=== PATIENT | female | born 1940 | race Caucasian/White ===

== ENCOUNTER 2020-10-26 08:17 | Outpatient (REF) | payer MEDICARE, SELFPAY ==
[2020-10-26 10:18] LABS: MANUAL DIFF FLAG NO
[2020-10-26 10:41] LABS: Basophils Absolute Auto 0.1 X10*3/uL (0.0-0.2); Basophils Percent Auto 1.3 % (0-2); Eosinophils Absolute Auto 0.1 X10*3/uL (0.0-0.4); Eosinophils Percent Auto 2.3 % (0-4); Hematocrit 42.4 % (37-47); Hemoglobin 14.3 g/dl (12.0-16.0); Imm Gran Abs Auto 0.01 X10*3/uL (0.00-0.03); Imm Gran Pct Auto 0.2 % (0.0-0.4); Lymphocytes Absolute Auto 2.2 X10*3/uL (1.2-4.9); Mean Corpuscular HGB Conc 33.7 g/dl (31.0-35.0); Mean Corpuscular Hemoglobin 30.3 pg (27.0-33.0); Mean Corpuscular Volume 89.8 fL (80-98); Mean Platelet Volume 10.4 fL (9.4-12.3); Monocytes Absolute Auto 0.5 X10*3/uL (0.1-1.2); Monocytes Percent Auto 8.7 % (2-11); Neutrophils Absolute Auto 2.4 X10*3/uL (2.0-8.3); Neutrophils Percent Auto 45.5 % (45-73); Platelet Count 248 X10*3/uL (160-400); Red Blood Count 4.72 X10*6/uL (4.20-5.50); Red Cell Distribution Width 13.2 % (11.0-16.0); White Blood Count 5.3 X10*3/uL (4.8-10.8)
[2020-10-26 10:58] LABS: Alanine Aminotransferase 23 U/L (0-31); Albumin Level 4.2 g/dL (3.5-5.0); Alkaline Phosphatase 74 U/L (39-117); Anion Gap 15 (12-20); Aspartate Amino Transferase 27 U/L (5-31); Bilirubin Total 0.4 mg/dL (0.0-1.0); Blood Urea Nitrogen 20 mg/dL (9-16); Calcium 9.2 mg/dL (8.4-10.2); Carbon Dioxide 29 mmol/L (22-29); Chloride 102 mmol/L (96-108); Cholesterol 174 mg/dL; Estimated Glomerular Filt Rate > 60; Glucose Fasting 98 mg/dL (60-99); HDL Cholesterol 56 mg/dL; LDL Cholesterol Calculated 99 mg/dl; Potassium 4.5 mmol/l (3.3-5.1); Sodium 141 mmol/L (135-145); Total Protein 6.8 g/dL (6.5-8.0); Triglycerides 99 mg/dL
[2020-10-26 11:16] LABS: Vitamin B12 782 pg/mL (200-900)
== END 2020-10-26 08:18 | disposition home or self-care (01) ==
LOC: HO.LAB 08:17
PROVIDERS: PCP Internal Medicine; Visit Provider Internal Medicine
DX: E78.5 Hyperlipidemia, unspecified (principal); I10 Essential (primary) hypertension; F41.1 Generalized anxiety disorder; K59.01 Slow transit constipation; D50.1 Sideropenic dysphagia
CPT/HCPCS: 36415; 80053; 80061; 82607; 85025

== ENCOUNTER → 2020-10-30 10:19 | Outpatient (BNV) | payer MEDICARE, SELFPAY | PROVIDERS: PCP Internal Medicine; Visit Provider Internal Medicine Medical Oncology | DX: D51.0 Vitamin B12 deficiency anemia due to intrinsic factor deficiency (principal) | CPT/HCPCS: 99213; 99214; 99442 ==

== ENCOUNTER 2021-03-19 10:31 | Outpatient (REF) | payer MEDICARE, SELFPAY ==
[2021-03-19 14:38] LABS: Alanine Aminotransferase 15 U/L (0-31); Albumin Level 4.2 g/dL (3.5-5.0); Alkaline Phosphatase 83 U/L (39-117); Anion Gap 15 (12-20); Aspartate Amino Transferase 24 U/L (5-31); Bilirubin Total 0.6 mg/dL (0.0-1.0); Blood Urea Nitrogen 20 mg/dL (9-16); Calcium 9.5 mg/dL (8.4-10.2); Carbon Dioxide 28 mmol/L (22-29); Chloride 88 mmol/L (96-108); Cholesterol 206 mg/dL; Estimated Glomerular Filt Rate 48; Glucose Fasting 98 mg/dL (60-99); HDL Cholesterol 52 mg/dL; LDL Cholesterol Calculated 133 mg/dl; Potassium 4.2 mmol/L (3.3-5.1); Sodium 127 mmol/L (135-145); Total Protein 6.7 g/dL (6.5-8.0); Triglycerides 108 mg/dL
== END 2021-03-19 10:32 | disposition home or self-care (01) ==
LOC: HO.HMGCLDS 10:31
PROVIDERS: PCP Internal Medicine; Visit Provider Internal Medicine
DX: E78.9 Disorder of lipoprotein metabolism, unspecified (principal); I10 Essential (primary) hypertension; F41.1 Generalized anxiety disorder
CPT/HCPCS: 36415; 80048; 80053; 80061

== ENCOUNTER 2021-03-22 07:08 | Outpatient (REF) | payer MEDICARE, SELFPAY ==
[2021-03-22 11:30] LABS: MANUAL DIFF FLAG NO
[2021-03-22 11:45] LABS: Basophils Absolute Auto 0.1 X10*3/uL (0.0-0.2); Eosinophils Absolute Auto 0.1 X10*3/uL (0.0-0.4); Eosinophils Percent Auto 2.5 % (0-4); Hemoglobin 12.6 g/dl (12.0-16.0); Imm Gran Abs Auto 0.02 X10*3/uL (0.00-0.03); Imm Gran Pct Auto 0.4 % (0.0-0.4); Lymphocytes Absolute Auto 1.9 X10*3/uL (1.2-4.9); Lymphocytes Percent Auto 37.2 % (20-40); Mean Corpuscular HGB Conc 34.1 g/dl (31.0-35.0); Mean Corpuscular Hemoglobin 30.1 pg (27.0-33.0); Mean Corpuscular Volume 88.5 fL (80-98); Mean Platelet Volume 9.7 fL (9.4-12.3); Monocytes Absolute Auto 0.5 X10*3/uL (0.1-1.2); Monocytes Percent Auto 8.6 % (2-11); Neutrophils Absolute Auto 2.6 X10*3/uL (2.0-8.3); Neutrophils Percent Auto 50.3 % (45-73); Platelet Count 283 X10*3/uL (160-400); Red Blood Count 4.18 X10*6/uL (4.20-5.50); White Blood Count 5.2 X10*3/uL (4.8-10.8)
[2021-03-22 12:08] LABS: Alanine Aminotransferase 18 U/L (0-31); Albumin Level 4.2 g/dL (3.5-5.0); Alkaline Phosphatase 81 U/L (39-117); Anion Gap 14 (12-20); Aspartate Amino Transferase 23 U/L (5-31); Bilirubin Total 0.7 mg/dL (0.0-1.0); Blood Urea Nitrogen 19 mg/dL (9-16); Calcium 9.6 mg/dL (8.4-10.2); Carbon Dioxide 29 mmol/L (22-29); Chloride 91 mmol/L (96-108); Estimated Glomerular Filt Rate > 60; Glucose Random 103 mg/dL (60-115); Potassium 3.8 mmol/L (3.3-5.1); Sodium 130 mmol/L (135-145); Total Protein 6.7 g/dL (6.5-8.0)
== END 2021-03-22 07:09 | disposition home or self-care (01) ==
LOC: HO.HMGCLDS 07:08
PROVIDERS: Internal Medicine Medical Oncology; PCP Internal Medicine; Visit Provider Internal Medicine
DX: D51.0 Vitamin B12 deficiency anemia due to intrinsic factor deficiency (principal)
CPT/HCPCS: 36415; 80053; 85025

== ENCOUNTER 2021-06-12 17:43 | Emergency (ER) | payer MEDICARE, SELFPAY ==
--- NOTE | ~2021-06-12 | XR_ITS ---
EXAMINATION: XR CHEST CLINICAL INFORMATION: Cough. COMPARISON: 10/09/2017 TECHNIQUE: AP portable upright view of the chest FINDINGS: Lungs are clear. No consolidation, pneumothorax, or pleural effusion. Cardiac and mediastinal contours are normal. Pulmonary vasculature is unremarkable. Bones are osteopenic. XR/XR chest 1V IMPRESSION: No acute cardiopulmonary findings
[2021-06-12 17:47] VITALS: BP 160/74; PULSE 67; RESP 18; TEMP 36.9; O2SAT 95; BMI 31.9
--- NOTE | 2021-06-12 18:19 | ED.URI ---
HPI - URI/Sore Throat General Chief Complaint: Upper Respiratory Symptoms Stated Complaint: flu like Source: patient Mode of arrival: ambulatory Limitations: no limitations History of Present Illness HPI Narrative: 81-year-old female with past medical history of anxiety, hypertension, hyperlipidemia, and hyponatremia presents with productive cough, fevers of 100.8, sore throat, and body aches. Has had multiple COVID-19 positive contacts patient did call her primary care physician who suggested that she present to the emergency department for lab values and x-rays. MD elicited complaint: fever, cough, sore throat and nasal congestion Onset (ago): day(s) (2) Consistency: constant Severity: mild Description of mucous: clear and watery Able to tolerate fluids by mouth: Yes Exacerbating factors: swallowing and speaking Relieving factors: nothing Context: sick contacts Associated symptoms: fever, chills, rhinorrhea, nasal congestion, sore throat and cough Treatments prior to arrival: acetaminophen Related Data Home Medications Medication Instructions Recorded Confirmed B12 10/30/20 03/19/21 ascorbic acid (vitamin C) 1,000 mg cap PO 10/30/20 03/19/21 capsule,extended release cholecalciferol (vitamin D3) 25 25 mcg PO DAILY 10/30/20 03/19/21 mcg (1,000 unit) capsule (Vitamin D3) [id number] oil-omega 3-vit E cap PO 10/30/20 03/19/21 50 mg-550 mg-300 mg-30 unit capsule docusate sodium 50 mg capsule 50 mg PO BID 10/30/20 03/19/21 folic acid 1 mg tablet 1 tab PO DAILY 10/30/20 03/19/21 garlic 10/30/20 03/19/21 multivitamin cap 10/30/20 03/19/21 thiamine HCl (vitamin B1) 25 mg mg PO 10/30/20 03/19/21 tablet vitamin B complex 1 cap PO DAILY 10/30/20 03/19/21 vitamin E 1,000 unit capsule 1,000 unit PO DAILY 10/30/20 03/19/21 zinc 10/30/20 03/19/21 psyllium 03/22/21 03/22/21 Previous Rx's Medication Instructions Recorded rosuvastatin 5 mg tablet 5 mg PO DAILY #90 tab 02/17/21 lisinopril 20 mg tablet 20 mg PO DAILY 90 Days #90 tab 03/19/21 amlodipine 10 mg tablet 10 mg PO DAILY #90 tab 04/04/21 atenolol 50 mg-chlorthalidone 25 1 tab PO DAILY #90 tab 04/15/21 mg tablet sertraline 50 mg tablet 50 mg PO DAILY 90 Days #90 tab 04/23/21 benzonatate 100 mg capsule 100 mg PO TID PRN #60 cap 06/12/21 (Avery Chopra) Allergies Allergy/AdvReac Type Severity Reaction Status Date / Time No Known Allergies Allergy Verified 03/19/21 09:49 [No Known Allergies*] Review of Systems Review of Systems: Constitutional: positive Fever, positive Chills, positive fatigue, positive Malaise ENT/Mouth: positive sore throat, positive runny nose Eyes: No Discharge Cardiovascular: No Chest Pain, No SOB Respiratory: No Cough, No Sputum, No Wheezing, No Smoke Exposure, No Dyspnea Gastrointestinal: No Nausea, No Vomiting, No Diarrhea Genitourinary: no irregular bleeding, No Dysuria, No Urinary Frequency, No Hematuria, No Urinary Incontinence, No Urgency, No Flank Pain, Musculoskeletal: positive Myalgia Skin: No rash Neuro: No Headache Yes all other systems are reviewed and are negative [facility] Past Medical History Attestation statement: The following information was validated with the patient. Source: old records reviewed Medical History Anemia, pernicious Anxiety, generalized Constipation by delayed colonic transit Hypertension, essential Lipid disorder Polyneuropathy Surgical History H/O rectal polypectomy H/O: hysterectomy No pertinent past surgical history S/P excision of lipoma Family History Family History Father HTN (hypertension) Mother HTN (hypertension) CHF (congestive heart failure) Afib Social History Social History Alcohol intake: former Advance Directives: No Advance Directives Information Provided: No Physical Exam Vital Signs: Vital Signs: Last Vital Signs Temp 98.4 F 06/12/21 17:47 Pulse 67 06/12/21 17:47 Resp 18 06/12/21 17:47 BP 160/74 H 06/12/21 17:47 Pulse Ox 95 06/12/21 17:47 Body Mass Index 31.9 Appearance: Alert. Oriented X3. No acute distress. Eyes: Pupils equal, round and reactive to light. EOMI, sclera nonicteric ENT: Pharynx normal. Moist mucous membranes Neck: Normal inspection. Neck supple. No nuchal rigidity, no cervical lymphadenopathy CVS: Normal heart rate and rhythm. Pulses normal. Respiratory: No respiratory distress. Lung sounds clear to auscultation all lobes. Abdomen: Soft and nontender. Skin: Skin warm and dry. Normal skin color. Normal skin turgor. Extremities: No lower extremity edema. Moves all extremities against resistance, strength 5/5. Neuro: No motor deficit. No sensory deficit. Cranial nerves 2-12 intact. No focal neural deficits. Course Course Course Narrative: 81-year-old female presents with upper respiratory symptoms and multiple positive COVID-19 contacts. Will order COVID testing, chest x-ray, and labs. At this time patient is afebrile, nontoxic, lung sounds clear to auscultation all lobes. Vital signs are within normal limits and stable. Sodium 131, which is chronic and has improved since last values. COVID test is positive. Chest x-ray negative for pneumonia. Will discharge patient home with supportive measures. Patient verbalized understanding of and agrees to plan of care. MDM - URI/Sore Throat Differential Diagnosis Differential diagnosis: Likely upper respiratory infection, sinusitis, viral infection, bronchitis and pharyngitis Medical Records Attestation: I reviewed the patient's medical records. Lab Data Attestation: I reviewed the patient's lab results. Result diagrams: 06/12/21 18:36 06/12/21 18:36 Labs: Lab Results 06/12/21 06/12/21 06/12/21 Range/Units 18:28 18:36 18:36 WBC 4.6 L (4.8-10.8) X10*3/uL RBC 4.17 L (4.20-5.50) X10*6/uL Hgb 12.8 (12.0-16.0) g/dl Hct 37.2 (37-47) % MCV 89.2 (80-98) fL MCH 30.7 (27.0-33.0) pg MCHC 34.4 (31.0-35.0) g/dl RDW 11.5 (11.0-16.0) % Plt Count 175 D (160-400) X10*3/uL MPV 9.8 (9.4-12.3) fL Immature Gran % (Auto) 0.2 (0.0-0.4) % Neut % (Auto) 66.4 (45-73) % Lymph % (Auto) 23.5 (20-40) % [place] % (Auto) 9.0 (2-11) % Eos % (Auto) 0.2 (0-4) % Baso % (Auto) 0.7 (0-2) % Lymph # (Auto) 1.1 L (1.2-4.9) X10*3/uL [place] # (Auto) 0.4 (0.1-1.2) X10*3/uL Eos # (Auto) 0.0 (0.0-0.4) X10*3/uL Baso # (Auto) 0.0 (0.0-0.2) X10*3/uL Abs Immat Gran (auto) 0.01 (0.00-0.03) X10*3/uL Absolute Neuts (auto) 3.0 (2.0-8.3) X10*3/uL Absolute Nucleated RBC 0.000 (0.0-0.012) X10*3/uL Nucleated RBC % (auto) 0.0 (0.0-0.2) /100WBC Sodium 131 L (135-145) mmol/L Potassium 3.9 (3.3-5.1) mmol/L Chloride 95 L (96-108) mmol/L Carbon Dioxide 26 (22-29) mmol/L Anion Gap 14 (12-20) BUN 13 (9-16) mg/dL Creatinine 0.84 (0.5-1.4) mg/dL Estim Creat Clear Calc 60.3 Estimated GFR > 60 Random Glucose 94 (60-115) mg/dL Calcium 8.7 D (8.4-10.2) mg/dL Coronavirus (PCR) POSITIVE A (Negative) Influenza Type A (PCR) NEGATIVE (Negative) Influenza Type B (PCR) NEGATIVE (Negative) RSV RNA Qual (PCR) NEGATIVE (Negative) S. pyogenes GrpA SHAILA (Negative) 06/12/21 Range/Units 19:24 WBC (4.8-10.8) X10*3/uL RBC (4.20-5.50) X10*6/uL Hgb (12.0-16.0) g/dl Hct (37-47) % MCV (80-98) fL MCH (27.0-33.0) pg MCHC (31.0-35.0) g/dl RDW (11.0-16.0) % Plt Count (160-400) X10*3/uL MPV (9.4-12.3) fL Immature Gran % (Auto) (0.0-0.4) % Neut % (Auto) (45-73) % Lymph % (Auto) (20-40) % [place] % (Auto) (2-11) % Eos % (Auto) (0-4) % Baso % (Auto) (0-2) % Lymph # (Auto) (1.2-4.9) X10*3/uL [place] # (Auto) (0.1-1.2) X10*3/uL Eos # (Auto) (0.0-0.4) X10*3/uL Baso # (Auto) (0.0-0.2) X10*3/uL Abs Immat Gran (auto) (0.00-0.03) X10*3/uL Absolute Neuts (auto) (2.0-8.3) X10*3/uL Absolute Nucleated RBC (0.0-0.012) X10*3/uL Nucleated RBC % (auto) (0.0-0.2) /100WBC Sodium (135-145) mmol/L Potassium (3.3-5.1) mmol/L Chloride (96-108) mmol/L Carbon Dioxide (22-29) mmol/L Anion Gap (12-20) BUN (9-16) mg/dL Creatinine (0.5-1.4) mg/dL Estim Creat Clear Calc Estimated GFR Random Glucose (60-115) mg/dL Calcium (8.4-10.2) mg/dL Coronavirus (PCR) (Negative) Influenza Type A (PCR) (Negative) Influenza Type B (PCR) (Negative) RSV RNA Qual (PCR) (Negative) S. pyogenes GrpA SHAILA Negative (Negative) Imaging Data Chest x-ray: Attestation: I personally reviewed and interpreted this imaging study as follows: Radiologist's impression: EXAMINATION: XR CHEST CLINICAL INFORMATION: Cough. COMPARISON: 10/09/2017 TECHNIQUE: AP portable upright view of the chest FINDINGS: ?Lungs are clear. No consolidation, pneumothorax, or pleural effusion. Cardiac and mediastinal contours are normal. Pulmonary vasculature is unremarkable. Bones are osteopenic. XR/XR chest 1V IMPRESSION: No acute cardiopulmonary findings Discharge Plan Discharge Clinical Impression: COVID-19 Patient Disposition: Home, Self-Care Instructions: COVID-19 (Coronavirus Disease 2019) (ED) Additional Instructions: You were evaluated for upper respiratory symptoms. Your COVID-19 test is positive. You were evaluated for symptoms consistent with COVID-19 and or COVID-19 positive exposure. Please maintain social isolation per State and Federal guidelines. Is your responsibility to maintain these guidelines. Please alternate Tylenol and Motrin as needed for pain management and fever control. If symptoms get worse, you develop shortness of breath, or your fevers are not controlled with Tylenol and Motrin, please return to the emergency department immediately. Thank you for choosing this emergency department for evaluation. Please follow-up with primary care physician as needed. Return to the emergency department for any new, concerning, or worsening symptoms. Prescriptions: New benzonatate [Tessalon Perles] 100 mg capsule 100 mg PO TID PRN (Reason: cough) Qty: 60 RF: 0 No Action rosuvastatin 5 mg tablet 5 mg PO DAILY Qty: 90 RF: 0 amlodipine 10 mg tablet 10 mg PO DAILY Qty: 90 RF: 0 atenolol-chlorthalidone 50-25 mg tablet 1 tab PO DAILY Qty: 90 RF: 0 sertraline 50 mg tablet 50 mg PO DAILY 90 Days Qty: 90 RF: 0 B12 RF: 0 vitamin E 1,000 unit Capsule 1,000 unit PO DAILY RF: 0 Colace 50 mg Capsule 50 mg PO BID RF: 0 garlic Capsule RF: 0 folic acid 1 mg tablet 1 tab PO DAILY RF: 0 multivitamin Capsule RF: 0 vitamin B complex [B Complex] Capsule 1 cap PO DAILY RF: 0 Vitamin C 1,000 mg Capsule, Extended Release PO RF: 0 thiamine HCl (vitamin B1) 25 mg Tablet PO RF: 0 cholecalciferol (vitamin D3) [Vitamin D3] 25 mcg (1,000 unit) Capsule 25 mcg PO DAILY RF: 0 co [id number] oil-omega 3-E [id number]-unit Capsule PO RF: 0 zinc RF: 0 GenFiber (psyllium) Powder RF: 0 lisinopril 20 mg tablet 20 mg PO DAILY 90 Days Qty: 90 RF: 0 Interventions: ED Discharge Assessment Last Done: 06/12/21 19:34 Discharge Date/Time: 06/12/21 19:36
[2021-06-12 18:45] LABS: Basophils Percent Auto 0.7 % (0-2); Eosinophils Percent Auto 0.2 % (0-4); Hematocrit 37.2 % (37-47); Hemoglobin 12.8 g/dl (12.0-16.0); Imm Gran Abs Auto 0.01 X10*3/uL (0.00-0.03); Imm Gran Pct Auto 0.2 % (0.0-0.4); Lymphocytes Absolute Auto 1.1 X10*3/uL (1.2-4.9); Lymphocytes Percent Auto 23.5 % (20-40); MANUAL DIFF FLAG NO; Mean Corpuscular HGB Conc 34.4 g/dl (31.0-35.0); Mean Corpuscular Hemoglobin 30.7 pg (27.0-33.0); Mean Corpuscular Volume 89.2 fL (80-98); Mean Platelet Volume 9.8 fL (9.4-12.3); Monocytes Absolute Auto 0.4 X10*3/uL (0.1-1.2); Neutrophils Percent Auto 66.4 % (45-73); Platelet Count 175 X10*3/uL (160-400); Red Blood Count 4.17 X10*6/uL (4.20-5.50); Red Cell Distribution Width 11.5 % (11.0-16.0); White Blood Count 4.6 X10*3/uL (4.8-10.8)
[2021-06-12 19:06] LABS: Anion Gap 14 (12-20); Blood Urea Nitrogen 13 mg/dL (9-16); Calcium 8.7 mg/dL (8.4-10.2); Carbon Dioxide 26 mmol/L (22-29); Chloride 95 mmol/L (96-108); Creatinine Clr Calc Pharmacy 60.3; Estimated Glomerular Filt Rate > 60; Glucose Random 94 mg/dL (60-115); Potassium 3.9 mmol/L (3.3-5.1); Sodium 131 mmol/L (135-145)
[2021-06-12 19:15] LABS: Influenza A PCR NEGATIVE (Negative); Influenza B PCR NEGATIVE (Negative); Resp Syncy Virus RNA Qual PCR NEGATIVE (Negative); SARS COV2 PCR INHOUSE POSITIVE (Negative)
--- NOTE | 2021-06-12 19:25 | PC.NURSE ---
Strep swab obtained and sent. [employer]GE [employer] at bedside discussing Covid+ result. Plan for discharge home @ this time.
--- NOTE | 2021-06-12 19:33 | PC.NURSE ---
Pt agreeable to discharge. Denies pain, SOB at this time, pt speaking full sentences in NAD. Pt advised on plan to quarantine for 2 weeks.
[2021-06-12 19:48] LABS: IDNOW Serial# 9DD0AD1C; Strep A Nucleic Acid Negative (Negative)
== END 2021-06-12 19:36 | disposition home or self-care (01) ==
PROVIDERS: Nurse Practitioner Family; Emergency Provider Emergency Medicine Emergency Medical Services; PCP Internal Medicine
DX: U07.1 COVID-19 (principal); I10 Essential (primary) hypertension
CPT/HCPCS: 0241U; 36415; 71045; 80048; 85025; 87651; 99283

== ENCOUNTER 2021-08-10 12:05 | Outpatient (REF) | payer MEDICARE, SELFPAY ==
[2021-08-10 13:59] LABS: MANUAL DIFF FLAG NO
[2021-08-10 14:06] LABS: Basophils Absolute Auto 0.1 X10*3/uL (0.0-0.2); Basophils Percent Auto 0.9 % (0-2); Eosinophils Absolute Auto 0.1 X10*3/uL (0.0-0.4); Hematocrit 42.7 % (37-47); Hemoglobin 14.1 g/dl (12.0-16.0); Imm Gran Abs Auto 0.01 X10*3/uL (0.00-0.03); Imm Gran Pct Auto 0.2 % (0.0-0.4); Lymphocytes Absolute Auto 1.6 X10*3/uL (1.2-4.9); Lymphocytes Percent Auto 29.5 % (20-40); Mean Corpuscular Volume 87.9 fL (80-98); Mean Platelet Volume 10.4 fL (9.4-12.3); Monocytes Absolute Auto 0.4 X10*3/uL (0.1-1.2); Monocytes Percent Auto 7.7 % (2-11); Neutrophils Absolute Auto 3.3 X10*3/uL (2.0-8.3); Neutrophils Percent Auto 59.7 % (45-73); Platelet Count 287 X10*3/uL (160-400); Red Blood Count 4.86 X10*6/uL (4.20-5.50); Red Cell Distribution Width 12.3 % (11.0-16.0); White Blood Count 5.5 X10*3/uL (4.8-10.8)
[2021-08-10 14:41] LABS: Alanine Aminotransferase 15 U/L (0-31); Albumin Level 4.3 g/dL (3.5-5.0); Alkaline Phosphatase 104 U/L (39-117); Anion Gap 15 (12-20); Aspartate Amino Transferase 22 U/L (5-31); Bilirubin Total 0.4 mg/dL (0.0-1.0); Blood Urea Nitrogen 16 mg/dL (9-16); Calcium 9.8 mg/dL (8.4-10.2); Carbon Dioxide 26 mmol/L (22-29); Chloride 100 mmol/L (96-108); Estimated Glomerular Filt Rate > 60; Glucose Random 94 mg/dL (60-115); Potassium 4.6 mmol/L (3.3-5.1); Sodium 136 mmol/L (135-145); Total Protein 7.1 g/dL (6.5-8.0)
== END 2021-08-10 12:06 | disposition home or self-care (01) ==
LOC: HO.HMGCLDS 12:05
PROVIDERS: PCP Internal Medicine; Visit Provider Internal Medicine
DX: E87.1 Hypo-osmolality and hyponatremia (principal); F41.1 Generalized anxiety disorder; I10 Essential (primary) hypertension
CPT/HCPCS: 36415; 80053; 85025

== ENCOUNTER 2021-12-15 11:48 | Outpatient (REF) | payer MEDICARE, SELFPAY ==
--- NOTE | ~2021-12-15 | XR_ITS ---
EXAMINATION: XR CHEST CLINICAL INFORMATION: Cough COMPARISON: Previous chest x-ray May 2021 TECHNIQUE: 2 views of the chest were obtained. FINDINGS: The cardiac and mediastinal contours are stable. The lungs are well inflated. The lungs are clear. There is no pleural effusion or pneumothorax. There are degenerative changes of the spine. XR/XR chest 2V IMPRESSION: No evidence for acute disease in the chest.
== END 2021-12-15 11:49 | disposition home or self-care (01) ==
LOC: HO.HMGCX 11:48
PROVIDERS: PCP Internal Medicine; Visit Provider Internal Medicine
DX: R05.8 Other specified cough (principal)
CPT/HCPCS: 71046

== ENCOUNTER 2021-12-18 10:28 | Emergency (ER) | payer MEDICARE, SELFPAY ==
--- NOTE | ~2021-12-18 | XR_ITS ---
EXAMINATION: CT HEAD/BRAIN WITHOUT CONTRAST CT CERVICAL SPINE WITHOUT CONTRAST XR BILATERAL RIBS AND CHEST XR THORACIC SPINE CLINICAL INFORMATION: Fall. COMPARISON: None TECHNIQUE: 5 mm thin axial and reformatted 2 mm thin sagittal and coronal images of the brain were obtained. Axial 3 mm thin and reformatted 2 mm thin sagittal and coronal images of the cervical spine were obtained. DLP: 1141 mGy-cm Chest 2 views. Chest and right RIBS 4 views. FINDINGS: BRAIN: There is no acute intra-axial, extra-axial bleed, masses or midline shift. There is no acute infarct in evolution. The lateral ventricles are symmetrical in size and configuration without enlargement. There is diffuse periventricular hypodensity suggestive of chronic small vessel ischemic changes. Bone windows reveal no calvarial abnormality. Bilateral paranasal sinuses and mastoid air cells are well aerated. The scalp soft tissues are normal. There is diffuse mucoperiosteal thickening of the bilateral sphenoid and bilateral ethmoid sinuses. There is sebastian bullosa of middle turbinates. CERVICAL SPINE: On sagittal reconstructed images, there is maintained cervical lordosis. The vertebral heights and alignment is normal. There is loss of C6-C7 disc height with moderate ventral and mild posterior cervical spondylosis. No visible acute fracture, dislocation or lytic process seen. The craniovertebral junction and the C1-C2 alignment is normal. There is moderate hypertrophic spurring C1-C2 disc level. Bilateral TM joints are symmetrical and normal. Bilateral parotid and submandibular glands are symmetrical and normal. The airway is widely patent. The right thyroid gland is lobulated and enlarged with hypodense nodules. The lung apices are clear. CHEST AND RIGHT RIBS: The lungs are well expanded and clear of acute process. The heart size and pulmonary vascularity is normal. There is no pleural effusion or thickening. Multiple views of the right ribs reveal no visible rib fracture or bony abnormality. DORSAL SPINE: There is maintained thoracic kyphosis. The vertebral heights, alignment and disc heights are normal. There is moderate ventral spondylosis of the mid and lower dorsal spine. No lytic process. XR/XR ribs BI min 4V w CXR1V IMPRESSION: No acute intracranial process seen. There is mild mucoperiosteal thickening of the bilateral sphenoid and ethmoid sinuses. Moderate hypertrophic degenerative changes C1-C2 disc level. There are degenerative disc changes with spondylosis C6-C7 disc level. No visible acute fracture, dislocation or lytic process seen.
[2021-12-18 10:32] VITALS: BP 175/79; PULSE 64; RESP 18; TEMP 36.8; O2SAT 100; BMI 30.9
--- NOTE | 2021-12-18 11:32 | ED_ITS ---
HPI - Fall General Chief Complaint: Fall Stated Complaint: fall Time Seen by Provider: 12/18/21 10:41 Source: patient Mode of arrival: ambulatory Limitations: no limitations History of Present Illness HPI Narrative: Patient is an 81-year-old female with a past medical history of vitamin B12 deficiency, constipation, anxiety, hypertension, hypercholesterolemia. Patient presents emergency department for evaluation after a fall. Reports walking down 3 stairs outdoors, when she slipped on the last stair striking her mid upper back and head against a cement. She denies loss of consciousness, but reports she ?saw stars?. The fall was witnessed by a friend who denies loss of consciousness as well. She turned onto her side and lie there for a few minutes and got herself up and was driven to the ER. Currently, she is reporting a laceration to the back of her head that is tender to touch and not currently bl eeding. She is reporting substernal chest pain that is described as a pressure, and lateral chest pain that is worse with inspiration and movement. She denies any symptoms precipitating the fall such as headache, vision changes, dizziness or lightheadedness, chest pain, palpitations, shortness of breath, nausea, abdominal pain. Denies taking any anticoagulants or anti-platelet agents. 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 Denies any lower back pain, bladder or bowel dysfunction, numbness or tingling of the perineum or bilateral legs. Denies headache, vision changes, shortness of breath. MD complaint: fall Onset (ago): hour(s) Fall from: standing Fall witnessed: yes, by bystander Place fall occurred: home Loss of consciousness: none Prolonged down time: no Symptoms prior to fall: none Context: tripped/slipped Location of injury: head, chest and back Severity scale (1-10): 4 Associated symptoms (after fall): denies Related Data Home Medications Medication Instructions Recorded Confirmed B12 1,500 units PO DAILY 10/30/20 10/01/21 ascorbic acid (vitamin C) 1,000 mg 1,000 cap PO DAILY 10/30/20 10/01/21 capsule,extended release cholecalciferol (vitamin D3) 25 25 mcg PO DAILY 10/30/20 10/01/21 mcg (1,000 unit) capsule (Vitamin D3) [id number] oil-omega 3-vit E 1 cap PO DAILY 10/30/20 10/01/21 50 mg-550 mg-300 mg-30 unit capsule docusate sodium 50 mg capsule 50 mg PO BID 10/30/20 10/01/21 folic acid 1 mg tablet 1 tab PO DAILY 10/30/20 10/01/21 multivitamin 1 cap PO DAILY 10/30/20 10/01/21 thiamine HCl (vitamin B1) 25 mg 25 mg PO DAILY 10/30/20 10/01/21 tablet vitamin B complex 1 cap PO DAILY 10/30/20 10/01/21 vitamin E 1,000 unit capsule 1,000 unit PO DAILY 10/30/20 10/01/21 psyllium 1 ea PO TID 03/22/21 10/01/21 coenzyme Q10 50 mg capsule (Co 50 mg PO DAILY 10/01/21 10/01/21 Q-10) Previous Rx's Medication Instructions Recorded atenolol 50 mg-chlorthalidone 25 1 tab PO DAILY #90 tab 10/13/21 mg tablet sertraline 50 mg tablet 50 mg PO DAILY 90 Days #90 tab 10/13/21 lisinopril 20 mg tablet 20 mg PO DAILY 90 Days #90 tab 12/13/21 Allergies Allergy/AdvReac Type Severity Reaction Status Date / Time No Known Allergies Allergy Verified 08/10/21 11:47 [No Known Allergies*] Review of Systems Verdana 4l Review of Systems: Verdana 4d [place] 4Bd Constitutional: [place] 4d No weight loss, fever, chills, weakness or fatigue. [place] 4Bd HEENT: + head injury. [place] 4d No visual loss, blurred vision, double vision or yellow sclera. No hearing loss, sneezing, congestion, runny nose or soresore throat. Skin: + posterior head laceration. No rash or itching. Cardiovascular: + chest pressure, lateral chest pain. No chest pain or chest discomfort. No palpitations or pedal edema. Respiratory: No shortness of breath, cough or sputum production. Gastrointestinal: No anorexia, nausea, vomiting or diarrhea. No abdominal pain or blood in stool. Genitourinary: No burning micturition. No urinary frequency or incontinence. Neurologic: + numbness or tingling in the hands and feet. No headache, dizziness, syncope, unilateral weakness, ataxia. No change in bowel or bladder control. Musculoskeletal: + mid back pain. No muscle pain, joint pain or stiffness. Hematologic: No bleeding or bruising. Lymphatics: No enlarged lymph nodes. Psychiatric:No depression or anxiety. Endocrine: No polyuria or polydipsia. [facility] Past Medical History Attestation statement: The following information was validated with the patient. Source: old records reviewed Medical History Anemia, pernicious Anxiety, generalized Constipation by delayed colonic transit Hypertension, essential Lipid disorder Polyneuropathy Surgical History H/O rectal polypectomy H/O: hysterectomy S/P excision of lipoma Family History Family History Father HTN (hypertension) Heart attack Mother CHF (congestive heart failure) Afib HTN (hypertension) Other Substance use disorder Social History Social History Housing: House Alcohol intake: former Patient Tobacco Use Status: Former Tobacco user Quit Date: 1982 Tobacco use type: Cigarette Years Smoked: since age 14 Advance Directives: Yes Advance Directives Information Provided: Yes Advance Directives on File: No Current occupational status: retired Physical Exam Verdana 4l Vital Signs: Verdana 4d Verdana 4d Vital Signs: Verdana 4d Verdana 4Bd Last Vital Signs Verdana 4d Jewelry Designer New 4d Jewelry Designer New 4d Temp 98.2 F 12/18/21 10:32 Jewelry Designer New 4d Pulse 64 12/18/21 10:32 Jewelry Designer New 4d Resp 18 12/18/21 10:32 BP 175/79 H 12/18/21 10:32 Pulse Ox 100 12/18/21 10:32 BMI result Body Mass Index 30.9 Vital signs have been reviewed and appeared to be correct. Blood pressure initially elevated 175/79. Heart rate normal.? Respiration rate normal. Temperature normal.? Oxygen saturation normal. Appearance: Alert.?Oriented to person, place and time. No acute distress.?Normal affect. Head: + right posterior linear head laceration 1 cm, no active bleeding. Normocephalic.. No sinus or TMJ tenderness.? Eyes: Sclera white, conjunctiva pink. PERRL, 3 mm bilaterally. Visual pal full to confrontation, EOMi.?No Nystagmus. No Giordano sign. Ears: Bilateral ear canals clear, TM visible with good cone of light.?No [place] eyes. Nose: Nasal mucosa pink and moist. Mouth/ Throat: Oral mucosa pink and moist without lesions. Pharynx normal. Neck: Normal inspection.?Full AROM. Neck supple.??No C-spine midline tenderness, step-offs, deformities. Back: + mild tenderness to palpation through T2-T8 with no step-offs or deformities CVS: Heart sounds normal. Normal heart rate and rhythm.? Pulses normal.??No chest wall crepitus, diffuse tenderness on the left and right lateral chest wall. Respiratory: No respiratory distress.? Lung sounds clear to auscultation bilaterally?? Abdomen: Soft and non-tender. Normoactive bowel sounds. No pulsatile mass.?? Skin: Skin warm and dry.? Normal skin color.? Normal skin turgor.?? Extremities: No lower extremity edema.? No calf ttp? Neuro: Moves all extremities spontaneously. Sensation intact bilaterally. No focal neuro deficits. Ambulates with normal steady gait. Course Course Course Narrative: Patient is an 81-year-old female being evaluated for what is described as a mechanical fall. Imaging to be obtained including head and C-spine CT, chest with ribs and thoracic spine XR. In addition, given her complaints of chest pressure will obtain EKG and troponin to exclude ischemia in addition to CBC and CMP. Patient offered Tylenol for pain but she declines at this time. Disposit ion will be pending results. Reevaluation(s) Reevaluation #1: EKG reveals normal sinus rhythm with left bundle branch block which is consistent with prior EKG from 2016. CBC, CMP, troponin unremarkable. Head CT reveals no acute intracranial process and C-spine without fracture dislocation, there was degenerative changes C1-C2 discs, and C6-C7 disc. Thoracic spine, chest and ribs without any fractures or dislocations. Two chintan placed to right occiput laceration. Substernal chest pain has resolved. And her lateral chest pain has improved after Tylenol. Patient is well-appearing, hemodynamically stable, ambulatory with steady gait. Discussed plan for discharge home, with outpatient follow-up with PCP and staple removal in 5 days discussed care of chintan, reviewed reasons to return to the emergency departmen t, all questions answered, patient agrees to plan. Time: 14:15 Procedures Laceration Laceration 1: Site: scalp (Two chintan inserted) Side (If applicable): right Size (cm): 1 Description: linear Depth: simple, single layer Pre-repair: irrigated extensively MDM - Fall Medical Records Attestation: I reviewed the patient's medical records. Lab Data Attestation: I reviewed the patient's lab results. Result diagrams: 12/18/21 12:01 12/18/21 12: Labs: Lab Results 12/18/21 12/18/21 12/18/21 Range/Units 12: 12: 12:01 WBC 6.2 (4.8-10.8) X10*3/uL RBC 4.84 (4.20-5.50) X10*6/uL Hgb 14.1 (12.0-16.0) g/dl Hct 42.4 (37.0-47.0) % MCV 87.6 (80.0-98.0) fL MCH 29.1 (27.0-33.0) pg MCHC 33.3 (31.0-35.0) g/dl RDW 11.9 (11.0-16.0) % Plt Count 205 (160-400) X10*3/uL MPV 9.8 (9.4-12.3) fL Immature Gran % (Auto) 0.6 H (0.0-0.4) % Neut % (Auto) 66.7 (45-73) % Lymph % (Auto) 20.6 (20-40) % [place] % (Auto) 5.6 (2-11) % Eos % (Auto) 5.5 H (0-4) % Baso % (Auto) 1.0 (0-2) % Lymph # (Auto) 1.3 (1.2-4.9) X10*3/uL [place] # (Auto) 0.4 (0.1-1.2) X10*3/uL Eos # (Auto) 0.3 (0.0-0.4) X10*3/uL Baso # (Auto) 0.1 (0.0-0.2) X10*3/uL Abs Immat Gran (auto) 0.04 H (0.00-0.03) X10*3/uL Absolute Neuts (auto) 4.2 (2.0-8.3) x10*3/uL Absolute Nucleated RBC 0.000 (0.0-0.012) X10*3/uL Nucleated RBC % (auto) 0.0 (0.0-0.2) /100WBC Sodium 139 (135-145) mmol/L Potassium 3.9 (3.3-5.1) mmol/L Chloride 101 (96-108) mmol/L Carbon Dioxide 31 H (22-29) mmol/L Anion Gap 11 L (12-20) BUN 15 (9-16) mg/dL Creatinine 0.84 (0.5-1.4) mg/dL Estim Creat Clear Calc 59.3 Estimated GFR > 60 Random Glucose 112 (60-115) mg/dL Calcium 9.6 (8.4-10.2) mg/dL Magnesium 2.1 (1.6-2.6) mg/dL Total Bilirubin 0.6 (0.0-1.0) mg/dL AST 25 (5-31) U/L ALT 18 (0-31) U/L Alkaline Phosphatase 106 (39-117) U/L Troponin I High Sens 5.5 (<3.5-17.0) ng/L Total Protein 6.8 (6.5-8.0) g/dL Albumin 4.1 (3.5-5.0) g/dL Imaging Data Chest x-ray: Attestation: I personally reviewed and interpreted this imaging study as follows: Radiologist's impression: Multiple views of the right ribs reveal no visible rib fracture or bony abnormality. Head and C-spine CT: Attestation: I personally reviewed and interpreted this imaging study as follows: Radiologist's impression: IMPRESSION: No acute intracranial process seen. There is mild mucoperiosteal thickening of the bilateral sphenoid and ethmoid sinuses. ? Moderate hypertrophic degenerative changes C1-C2 disc level. There are degenerative disc changes with spondylosis C6-C7 disc level. No visible acute fracture, dislocation or lytic process seen.? ECG Data Attestation: I personally reviewed and interpreted this ECG as follows: ECG interpretation date: 12/18/21 ECG interpretation time: 11:57 Prior ECG tracings: available for review Interpretation: Rate: 60 Rhythm:? Normal sinus rhythm with left bundle-branch block similar to prior 2016 EKG [place]:? Normal Normal P waves.? Normal SOLIS.??? qTC: 468 prior studies:?2016 The study has been interpreted contemporaneously by me. Discharge Plan Discharge Clinical Impression: Fall, Laceration of head, Bilateral contusion of ribs Patient Disposition: Home, Self-Care Instructions: Rib Contusion (ED), Head Laceration (ED) Additional Instructions: You were evaluated in the emergency department after a slip and fall on the stairs. The CT scan of your head and neck were normal, the x-rays of your chest ribs and thoracic spine were normal. We placed 2 chintan to your scalp on the back of your head. You should keep the area dry for 24-48 hours then you can start to gently wash around the area. You should have the chintan removed in 5 days. Please contact your primary care provider to schedule a follow-up appointment. You may return to the emergency department with new or worsening symptoms or concerns Prescriptions: No Action atenolol-chlorthalidone 50-25 mg tablet 1 tab PO DAILY Qty: 90 0RF sertraline 50 mg tablet 50 mg PO DAILY 90 Days Qty: 90 0RF lisinopril 20 mg tablet 20 mg PO DAILY 90 Days Qty: 90 0RF B12 3,000 units 1,500 units PO DAILY 0RF vitamin E 1,000 unit Capsule 1,000 unit PO DAILY 0RF Colace 50 mg Capsule 50 mg PO BID 0RF folic acid 1 mg tablet 1 tab PO DAILY 0RF multivitamin Capsule 1 cap PO DAILY 0RF vitamin B complex [B Complex] Capsule 1 cap PO DAILY 0RF Vitamin C 1,000 mg Capsule, Extended Release 1,000 cap PO DAILY 0RF thiamine HCl (vitamin B1) 25 mg Tablet 25 mg PO DAILY 0RF cholecalciferol (vitamin D3) [Vitamin D3] 25 mcg (1,000 unit) Capsule 25 mcg PO DAILY 0RF co Q83-lxle oil-omega 3-E [id number] ly-kd-ca-unit Capsule 1 cap PO DAILY 0RF psyllium Powder 1 ea PO TID 0RF coenzyme Q10 [Co Q-10] 50 mg Capsule 50 mg PO DAILY 0RF Interventions: ED Discharge Assessment Last Done: 12/18/21 14:27 Discharge Date/Time: 12/18/21 14:35
--- NOTE | 2021-12-18 11:39 | ECG_ITS ---
Test Reason : FALL Blood Pressure : / mmHG Vent. Rate : 060 BPM Atrial Rate : 060 BPM P-R Int : 184 ms QRS Dur : 160 ms QT Int : 468 ms P-R-T Axes : 045 -29 104 degrees QTc Int : 468 ms Normal sinus rhythm Left bundle branch block Abnormal ECG When compared with ECG of 01-JUL-2016 10:56, No significant change was found Referred By: Alicia Xiong Electronically Signed By:CHARLENE MATHEW
[2021-12-18 12:04] LABS: MANUAL DIFF FLAG NO
[2021-12-18 12:05] LABS: Basophils Absolute Auto 0.1 X10*3/uL (0.0-0.2); Eosinophils Absolute Auto 0.3 X10*3/uL (0.0-0.4); Eosinophils Percent Auto 5.5 % (0-4); Hematocrit 42.4 % (37.0-47.0); Hemoglobin 14.1 g/dl (12.0-16.0); Imm Gran Abs Auto 0.04 X10*3/uL (0.00-0.03); Imm Gran Pct Auto 0.6 % (0.0-0.4); Lymphocytes Absolute Auto 1.3 X10*3/uL (1.2-4.9); Lymphocytes Percent Auto 20.6 % (20-40); Mean Corpuscular HGB Conc 33.3 g/dl (31.0-35.0); Mean Corpuscular Hemoglobin 29.1 pg (27.0-33.0); Mean Corpuscular Volume 87.6 fL (80.0-98.0); Mean Platelet Volume 9.8 fL (9.4-12.3); Monocytes Absolute Auto 0.4 X10*3/uL (0.1-1.2); Monocytes Percent Auto 5.6 % (2-11); Neutrophils Absolute Auto 4.2 x10*3/uL (2.0-8.3); Neutrophils Percent Auto 66.7 % (45-73); Platelet Count 205 X10*3/uL (160-400); Red Blood Count 4.84 X10*6/uL (4.20-5.50); Red Cell Distribution Width 11.9 % (11.0-16.0); White Blood Count 6.2 X10*3/uL (4.8-10.8)
[2021-12-18 12:29] LABS: Alanine Aminotransferase 18 U/L (0-31); Albumin Level 4.1 g/dL (3.5-5.0); Alkaline Phosphatase 106 U/L (39-117); Anion Gap 11 (12-20); Aspartate Amino Transferase 25 U/L (5-31); Bilirubin Total 0.6 mg/dL (0.0-1.0); Blood Urea Nitrogen 15 mg/dL (9-16); Calcium 9.6 mg/dL (8.4-10.2); Carbon Dioxide 31 mmol/L (22-29); Chloride 101 mmol/L (96-108); Creatinine Clr Calc Pharmacy 59.3; Estimated Glomerular Filt Rate > 60; Glucose Random 112 mg/dL (60-115); Magnesium 2.1 mg/dL (1.6-2.6); Potassium 3.9 mmol/L (3.3-5.1); Sodium 139 mmol/L (135-145); Total Protein 6.8 g/dL (6.5-8.0)
[2021-12-18] MEDS: Acetaminophen 325 MG TABLET 975 MG PO (12:43)
[2021-12-18 12:56] LABS: Troponin-I High Sensitivity 5.5 ng/L (<3.5-17.0)
== END 2021-12-18 14:35 | disposition home or self-care (01) ==
PROVIDERS: Nurse Practitioner Family; Emergency Provider Emergency Medicine; PCP Internal Medicine
DX: S01.01XA Laceration without foreign body of scalp, initial encounter (principal); W10.8XXA Fall (on) (from) other stairs and steps, initial encounter; I44.7 Left bundle-branch block, unspecified; Y93.89 Activity, other specified; Y92.018 Other place in single-family (private) house as the place of occurrence of the external cause; Y99.9 Unspecified external cause status
CPT/HCPCS: 12001; 36415; 70450; 71111; 72070; 72125; 80053; 83735; 84484; 85025; 93005; 99283; 99284

== ENCOUNTER 2022-12-07 11:21 | Outpatient (REF) | payer MEDICARE, SELFPAY ==
[2022-12-07 15:08] LABS: Influenza A PCR NEGATIVE (Negative); Influenza B PCR NEGATIVE (Negative); Resp Syncy Virus RNA Qual PCR NEGATIVE (Negative); SARS COV2 PCR INHOUSE POSITIVE (Negative)
[2022-12-07 16:34] LABS: MANUAL DIFF FLAG NO
[2022-12-07 16:43] LABS: Basophils Absolute Auto 0.1 X10*3/uL (0.0-0.2); Basophils Percent Auto 0.9 % (0-2); Eosinophils Absolute Auto 0.4 X10*3/uL (0.0-0.4); Eosinophils Percent Auto 6.4 % (0-4); Hematocrit 40.6 % (37.0-47.0); Hemoglobin 13.2 g/dl (12.0-16.0); Imm Gran Abs Auto 0.01 X10*3/uL (0.00-0.03); Imm Gran Pct Auto 0.2 % (0.0-0.4); Mean Corpuscular HGB Conc 32.5 g/dl (31.0-35.0); Mean Corpuscular Hemoglobin 28.2 pg (27.0-33.0); Mean Corpuscular Volume 86.8 fL (80.0-98.0); Mean Platelet Volume 10.5 fL (9.4-12.3); Monocytes Absolute Auto 0.4 X10*3/uL (0.1-1.2); Monocytes Percent Auto 6.4 % (2-11); Neutrophils Absolute Auto 2.7 x10*3/uL (2.0-8.3); Neutrophils Percent Auto 49.1 % (45-73); Platelet Count 230 X10*3/uL (160-400); Red Blood Count 4.68 X10*6/uL (4.20-5.50); Red Cell Distribution Width 12.7 % (11.0-16.0); White Blood Count 5.4 X10*3/uL (4.8-10.8)
[2022-12-07 16:56] LABS: Alanine Aminotransferase 17 U/L (0-31); Alkaline Phosphatase 96 U/L (39-117); Anion Gap 13 (12-20); Aspartate Amino Transferase 24 U/L (5-31); Bilirubin Total 0.5 mg/dL (0.0-1.0); Blood Urea Nitrogen 19 mg/dL (9-16); Calcium 9.3 mg/dL (8.4-10.2); Carbon Dioxide 28 mmol/L (22-29); Chloride 101 mmol/L (96-108); Cholesterol 223 mg/dL; Estimated Glomerular Filt Rate > 60; Glucose Fasting 102 mg/dL (60-99); HDL Cholesterol 39 mg/dL; LDL Cholesterol Calculated 153 mg/dl; Potassium 4.3 mmol/L (3.3-5.1); Sodium 138 mmol/L (135-145); Total Protein 6.7 g/dL (6.5-8.0); Triglycerides 157 mg/dL
[2022-12-07 17:16] LABS: Vitamin B12 535 pg/mL (200-900)
== END 2022-12-07 11:22 | disposition home or self-care (01) ==
LOC: HO.HMGCLDS 11:21
PROVIDERS: PCP Internal Medicine; Visit Provider Internal Medicine
DX: Z20.822 Contact with and (suspected) exposure to COVID-19 (principal); D51.0 Vitamin B12 deficiency anemia due to intrinsic factor deficiency; D51.8 Other vitamin B12 deficiency anemias; E78.9 Disorder of lipoprotein metabolism, unspecified; F41.1 Generalized anxiety disorder; I10 Essential (primary) hypertension; R09.89 Other specified symptoms and signs involving the circulatory and respiratory systems
CPT/HCPCS: 0241U; 36415; 80053; 80061; 82607; 85025

== ENCOUNTER 2023-05-31 09:31 | Outpatient (AMB) | payer MEDICARE, SELFPAY ==
[2023-05-31 09:35] VITALS: BP 138/74; PULSE 57; O2SAT 95; BMI 31.8
--- NOTE | 2023-05-31 09:35 | MHC.PC.OV ---
Vital Signs 05/31/23 09:35 Height 5 ft 7 in Weight 203 lb 2 oz BMI 31.8 BP 138/74 Blood Pressure Location Rt brachial Position Sitting Pulse 57 Pulse Source Pulse Oximeter Pulse Oximetry (%) 95 Oxygen Delivery Method Room Air Intake Visit Reasons: 3m follow up Allergies No Known Allergies [No Known Allergies*] Allergy (Verified 05/31/23 09:36) Tobacco use date assessed: 05/31/23 Fall risk assessment: No Falls in past year Last assessed Fall Risk: 05/31/23 Dental Screening Dental Screen Date: 05/31/23 Did you have a dental visit in the last 12 months?: Yes Did you have a dental problem in the last 6 months where you did not have access to dental care?: No Was dental information given to patient?: No HPI 3m follow up HPI Details Patient is 83-year-old female came in today for regular follow-up appointment Patient is doing well offer no new complaints Seen Dr. Faizan Rdz of this year B12 level is slightly lower than before in 300s range hemoglobin is stable Patient have pernicious anemia Hypertension: Patient is on atenolol chlorthalidone 50-25 mg, and lisinopril 20 mg blood pressure is stable .? No side effects Anxiety is stable with sertraline 50 mg.? She is busy with her gardening which keeps her active as well and happy Follow-up 3 months PFS Medical History Anemia, pernicious Anxiety, generalized Constipation by delayed colonic transit History of head injury Hypertension, essential Lipid disorder Polyneuropathy Surgical History H/O rectal polypectomy H/O: hysterectomy S/P excision of lipoma Family History Father HTN (hypertension) Heart attack Mother CHF (congestive heart failure) Afib HTN (hypertension) Other Substance use disorder Social History Household Members: None Housing: House Are you a primary care team assistant to a significant other at home: No Do you presently have visiting nurse or other home services: No Alcohol intake: former Patient Tobacco Use Status: Former Tobacco user Quit Date: 1982 Tobacco use type: Cigarette Years Smoked: since age 14 e-Cigarette/Vaping Use: Never Used Second Hand Smoke Exposure: No service: No Current occupational status: retired Cognitive needs: No Hearing needs: No Vision needs: Yes Questionnaire Thrive Questionnaire Date Thrive assessed: 12/07/22 AUDIT C Alcohol Use Questionnaire (AUDIT-C) 1. How often do you have a drink containing alcohol?: Never 3. How often do you have six or more drinks on one occasion?: Never Total Score: 0 Score Reviewed/Action Taken: Yes MICHELLE-7 AMB Questionnaire MICHELLE-7 Date MICHELLE - 7 assessed: 12/07/22 Source: Developed by Drs. Ghanshyam Moreno, Jenna Ulloa, Juve Jeong and colleagues, with an educational nestor from [employer]. Review of Systems Const Denies chills and Denies fever(s) ENT Denies epistaxis and Denies nasal discharge Card Denies chest pain Resp Denies chest congestion, Denies cough and Denies hemoptysis GI Denies diarrhea and Denies nausea Skin/Breast Denies rash Neuro Reports no additional complaints Psych Reports no additional complaints Endo Reports no additional complaints Physical exam (Primary Care) Vital Signs: Last Vital Signs Pulse 57 05/31/23 09:35 Pulse Ox 95 05/31/23 09:35 Oxygen Delivery Method Room Air 05/31/23 09:35 BMI result Body Mass Index 31.8 Tobacco/Smoking Status: Tobacco use Status Tobacco use date assessed 12/07/22 03/01/23 09:51 Patient Tobacco Use Status Former Tobacco user 03/01/23 09:51 Tobacco use type Cigarette 03/01/23 09:51 e-Cigarette/Vaping Use Never Used 03/01/23 09:51 Thrive Assessment: Date of Thrive Assessment Date Thrive assessed 12/07/22 03/01/23 09:51 Const General: cooperative, comfortable and no acute distress Orientation/consciousness: patient oriented x3 HENMT Head: Yes normocephalic Eyes General: appearance normal, both eyes and all related structures Neck Neck: Yes supple Resp Effort & Inspection: normal respiratory effort, no cough and no stridor Cardio Rhythm: regular rhythm Heart sounds: S1 normal heart sound present and S2 normal heart sound present Skin General skin exam: turgor normal Neuro General: patient oriented x3, tone normal and moves all extremities Extrem Right lower extremity: no edema Left lower extremity: no edema Assessment and Plan Assessment & Plan (1) Hypertension, essential: Code(s): I10 - Essential (primary) hypertension (2) Lipid disorder: Comment: Make healthy food choices . Eat lots of fruits, vegetables, whole grains, and low-fat dairy products. Limit the amount of meat and fried or fatty foods that you eat. Be active Walk, garden, or do something active for 30 minutes or more on most days of the week. If you smoke, stop smoking. Smoking increases the chance of heart attack or stroke, or develop cancer.If you are over weight, Lose weight, Being overweight increases the risk of many health problems. Avoid alcohol Alcohol can increase blood sugar and blood pressure. Code(s): E78.9 - Disorder of lipoprotein metabolism, unspecified (3) Anxiety, generalized: Code(s): F41.1 - Generalized anxiety disorder (4) Pernicious anemia: Code(s): D51.0 - Vitamin B12 deficiency anemia due to intrinsic factor deficiency Plan Patient is 83-year-old female came in today for regular follow-up appointment Patient is doing well offer no new complaints Seen Dr. Gloria May of this year B12 level is slightly lower than before in 300s range hemoglobin is stable Patient have pernicious anemia she will be restarting B12 supplement once a week Hypertension: Patient is on atenolol chlorthalidone 50-25 mg, and lisinopril 20 mg blood pressure is stable .? No side effects Anxiety is stable with sertraline 50 mg.? She is busy with her gardening which keeps her active as well and happy Follow-up 3 months Coding Level of Care Code Est Pt Level 3 (94339) Diagnoses Hypertension, essential I10 Lipid disorder E78.9 Anxiety, generalized F41.1 Pernicious anemia D51.0
== END 2023-05-31 09:49 | disposition home or self-care (01) ==
PROVIDERS: Visit Provider Internal Medicine
DX: I10 Essential (primary) hypertension (principal); E78.9 Disorder of lipoprotein metabolism, unspecified; F41.1 Generalized anxiety disorder; D51.0 Vitamin B12 deficiency anemia due to intrinsic factor deficiency
CPT/HCPCS: 99213

== ENCOUNTER 2023-09-01 09:16 | Outpatient (AMB) | payer MEDICARE, SELFPAY ==
[2023-09-01 09:18] VITALS: BP 132/66; O2SAT 96; BMI 32.3
--- NOTE | 2023-09-01 09:18 | MHC.PC.OV ---
Vital Signs 09/01/23 09:18 Height 5 ft 7 in Weight 206 lb 4 oz BMI 32.3 BP 132/66 Blood Pressure Location Rt brachial Position Sitting Pulse Oximetry (%) 96 Oxygen Delivery Method Room Air Intake Visit Reasons: 3m follow up Allergies No Known Allergies [No Known Allergies*] Allergy (Verified 09/01/23 09:22) Medication List - Last Reconciled 09/01/23 by Angus Mcmullen MD acetaminophen 500 mg PO Q6H PRN ascorbic acid (vitamin C) ER 1,000 caps PO DAILY atenolol-chlorthalidone 50-25 mg 1 tab PO DAILY 90 days cholecalciferol (vitamin D3) (Vitamin D3) 25 mcg PO DAILY coenzyme Q10 (Co Q-10) 50 mg PO DAILY docusate sodium 50 mg PO BID folic acid 1 tab PO DAILY lisinopril 20 mg PO DAILY 90 days multivitamin 1 tab PO DAILY sertraline 50 mg PO DAILY 90 days vitamin E 1,000 units PO DAILY Tobacco use date assessed: 09/01/23 Fall risk assessment: No Falls in past year Last assessed Fall Risk: 09/01/23 Dental Screening Dental Screen Date: 09/01/23 Did you have a dental visit in the last 12 months?: Yes Did you have a dental problem in the last 6 months where you did not have access to dental care?: No Was dental information given to patient?: Patient has dentist HPI 3m follow up HPI Details Patient is 83-year-old female came in today for regular follow-up appointment Patient has longstanding history of hypertension as well as strong family history of cardiac abnormalities. Patient says that her sister was diagnosed with cardiac arrhythmia recently Long time ago patient had echocardiogram done that was in 2017, I have ordered another echocardiogram to re-evaluate the cardiac status Patient have pernicious anemia , she is established with Hematology I see that there is a lab order from Hematology to be done next month. Patient is due for labs last set of lab was March of this year Hypertension: Patient is on atenolol chlorthalidone 50-25 mg, and lisinopril 20 mg blood pressure is stable .? No side effects Anxiety is stable with sertraline 50 mg.? Patient has a follow-up appointment 28 of November BMI is elevated patient is trying to lose weight PFSH Medical History History of head injury Polyneuropathy Anemia, pernicious Constipation by delayed colonic transit Anxiety, generalized Lipid disorder Hypertension, essential Surgical History S/P excision of lipoma H/O rectal polypectomy H/O: hysterectomy Family History Father HTN (hypertension) Heart attack Mother CHF (congestive heart failure) Afib HTN (hypertension) Other Substance use disorder Social History Household Members: None Housing: House Are you a primary hearing care professional to a significant other at home: No Do you presently have visiting nurse or other home services: No Alcohol intake: former Patient Tobacco Use Status: Former Tobacco user Quit Date: 1982 Tobacco use type: Cigarette Years Smoked: since age 14 e-Cigarette/Vaping Use: Never Used Second Hand Smoke Exposure: No service: No Current occupational status: retired Cognitive needs: No Hearing needs: No Vision needs: Yes Questionnaire PHQ-9 Over the last 2 weeks, how often have you been bothered by any of the following problems? 1. Little interest or pleasure in doing things: not at all 2. Feeling down, depressed, or hopeless: not at all 3. Trouble falling or staying asleep, or sleeping too much: not at all 4. Feeling tired or having little energy: not at all 5. Poor appetite or overeating: not at all 6. Feeling bad about yourself - or that you are a failure or have let yourself or your family down: not at all 7. Trouble concentrating on things, such as reading the newspaper or watching television: not at all 8. Moving or speaking so slowly that other people could have noticed. Or the opposite - being so fidgety or restless that you have been moving around a lot more than usual: not at all 9. Thoughts that you would be better off or of hurting yourself in some way: not at all Total score: 0 Depression Screening Interpretation: Negative Depression Screening Done: Yes 92078 - PHQ-9 Billing: Yes Source: Developed by Drs. Ghanshyam Moreno, Jenna Ulloa, Juve Jeong and colleagues, with an educational nestor from [employer]. Thrive Questionnaire Date Thrive assessed: 12/07/22 AUDIT C Alcohol Use Questionnaire (AUDIT-C) 1. How often do you have a drink containing alcohol?: Never 3. How often do you have six or more drinks on one occasion?: Never Total Score: 0 Score Reviewed/Action Taken: Yes MICHELLE-7 AMB Questionnaire MICHELLE-7 Date MICHELLE - 7 assessed: 12/07/22 Source: Developed by Drs. Ghanshyam Moreno, Jenna Ulloa, Juve Jeong and colleagues, with an educational nestor from [employer]. Review of Systems Const Denies chills and Denies fever(s) ENT Denies epistaxis and Denies nasal discharge Card Denies chest pain Resp Denies chest congestion, Denies cough and Denies hemoptysis GI Denies diarrhea and Denies nausea Skin/Breast Denies rash Neuro Reports no additional complaints Psych Reports no additional complaints Endo Reports no additional complaints Physical exam (Primary Care) Vital Signs: Last Vital Signs BP 132/66 09/01/23 09:18 Pulse Ox 96 09/01/23 09:18 Oxygen Delivery Method Room Air 09/01/23 09:18 BMI result Body Mass Index 32.3 Tobacco/Smoking Status: Tobacco use Status Tobacco use date assessed 09/01/23 09/01/23 09:25 Patient Tobacco Use Status Former Tobacco user 09/01/23 09:19 Tobacco use type Cigarette 09/01/23 09:19 e-Cigarette/Vaping Use Never Used 09/01/23 09:19 Depression Screening Interpretation: Negative Thrive Assessment: Date of Thrive Assessment Date Thrive assessed 12/07/22 09/01/23 09:19 Const General: cooperative, comfortable and no acute distress Orientation/consciousness: patient oriented x3 [facility] Head: Yes normocephalic Eyes General: appearance normal, both eyes and all related structures Neck Neck: Yes supple Resp Effort & Inspection: normal respiratory effort, no cough and no stridor Cardio Rhythm: regular rhythm Heart sounds: S1 normal heart sound present and S2 normal heart sound present Skin General skin exam: turgor normal Neuro General: patient oriented x3, tone normal and moves all extremities Extrem Right lower extremity: no edema Left lower extremity: no edema Assessment and Plan Assessment & Plan (1) Hypertension, essential: Code(s): I10 - Essential (primary) hypertension (2) Family history of heart attack: Code(s): Z82.49 - Family history of ischemic heart disease and other diseases of the circulatory system (3) Lipid disorder: Comment: Make healthy food choices . Eat lots of fruits, vegetables, whole grains, and low-fat dairy products. Limit the amount of meat and fried or fatty foods that you eat. Be active Walk, garden, or do something active for 30 minutes or more on most days of the week. If you smoke, stop smoking. Smoking increases the chance of heart attack or stroke, or develop cancer.If you are over weight, Lose weight, Being overweight increases the risk of many health problems. Avoid alcohol Alcohol can increase blood sugar and blood pressure. Code(s): E78.9 - Disorder of lipoprotein metabolism, unspecified (4) Anxiety, generalized: Code(s): F41.1 - Generalized anxiety disorder (5) Pernicious anemia: Code(s): D51.0 - Vitamin B12 deficiency anemia due to intrinsic factor deficiency (6) Obesity due to excess calories: Code(s): E66.09 - Other obesity due to excess calories Qualifiers: Obesity classification: adult class 1 (BMI 30 - 34.9) Serious obesity comorbidity presence: with serious comorbidity Body mass index: BMI 32.0-32.9 Qualified Code(s): E66.09 - Other obesity due to excess calories; Z68.32 - Body mass index [BMI] 32.0-32.9, adult Plan Patient is 83-year-old female came in today for regular follow-up appointment Patient has longstanding history of hypertension as well as strong family history of cardiac abnormalities. Patient says that her sister was diagnosed with cardiac arrhythmia recently Long time ago patient had echocardiogram done that was in 2017, I have ordered another echocardiogram to re-evaluate the cardiac status Patient have pernicious anemia , she is established with Hematology I see that there is a lab order from Hematology to be done next month. Patient is due for labs last set of lab was March of this year Hypertension: Patient is on atenolol chlorthalidone 50-25 mg, and lisinopril 20 mg blood pressure is stable .? No side effects Anxiety is stable with sertraline 50 mg.? Patient has a follow-up appointment 28 of November BMI is elevated patient is trying to lose weight Orders: Orders CA echo transthoracic complete Today I10 - Essential (primary) hypertension, Z82.49 - Family history of ischemic heart disease and other diseases of the circulatory system Coding Level of Care Code Est Pt Level 4 (19029) Diagnoses Hypertension, essential I10 Family history of heart attack Z82.49 Lipid disorder E78.9 Anxiety, generalized F41.1 Pernicious anemia D51.0 Class 1 obesity due to excess calories with serious comorbidity and body mass index (BMI) of 32.0 to 32.9 in adult E66.09; Z68.32 Obesity classification: adult class 1 (BMI 30 - 34.9) Serious obesity comorbidity presence: with serious comorbidity Body mass index: BMI 32.0-32.9
== END 2023-09-01 09:36 | disposition home or self-care (01) ==
PROVIDERS: PCP Internal Medicine; Visit Provider Internal Medicine
DX: I10 Essential (primary) hypertension (principal); Z82.49 Family history of ischemic heart disease and other diseases of the circulatory system; E78.9 Disorder of lipoprotein metabolism, unspecified; F41.1 Generalized anxiety disorder; D51.0 Vitamin B12 deficiency anemia due to intrinsic factor deficiency; E66.09 Other obesity due to excess calories; Z68.32 Body mass index [BMI] 32.0-32.9, adult
CPT/HCPCS: 99214

== ENCOUNTER → 2023-09-27 07:48 | Outpatient (REF) | payer MEDICARE, SELFPAY ==
--- NOTE | 2023-09-27 07:52 | CA_ITS ---
Transthoracic Echocardiogram Patient (Last, First, Middle): Kenzie Stein A Gender: Female Date of : 1940 Age: 83 Procedure Date: 09/27/2023 Procedure Type: Transthoracic Echocardiogram Location: OP Height: 167.64 cm Weight: 91.63 kg BSA: 2.01 m2 Heart Rate: 53 bpm BP: 138 / 72 mmHg Volunteer Recruiter: SB Referring MD: Angus Mcmullen MD Symptoms: I10 - Essential (primary) hypertension Study Quality: Fair parasternal images ECG Rhythm: Bradycardia Conclusions: - The left ventricular systolic function is low normal. The visually estimated ejection fraction is between 50-55%. - No obvious valvular pathology seen on this study. Findings Procedure Information The quality of the study was technically difficult. The study quality is limited by patients body habitus. Left Ventricle Normal left ventricular cavity size. The left ventricular systolic function is low normal. The visually estimated ejection fraction is between 50-55%. There is no evidence of regional wall motion abnormalities. There is paradoxical septal motion consistent with a left bundle branch block. Evidence suggests grade I (mild) diastolic dysfunction. There is moderate septal asymmetric hypertrophy. Right Ventricle Normal right ventricular cavity size and systolic function. Atria Both atria are normal in size. Aortic Valve There is a normal trileaflet aortic valve. There is no aortic valve regurgitation. No significant aortic stenosis. Mitral Valve The mitral valve appears normal. There is trace mitral valve regurgitation. There is no mitral valve stenosis. Pulmonic Valve The pulmonic valve is likely normal. Tricuspid Valve Normal tricuspid valve structure. There is mild tricuspid valve regurgitation. There is no evidence of pulmonary hypertension. Great Vessels The asc aorta is normal in size. Small plaque is seen in the sino tubular ridge. Venous The inferior vena cava is normal in size and collapses greater than 50% with inspiration. Pericardium/Pleural There is no evidence of pericardial effusion. Prior Study Comparison No significant change compared to prior study dated: 09/19/2016. Recommendations, Care & Conclusions No obvious valvular pathology seen on this study. Measurements 2D Linear Measurements IVSd: 1.26 0.6-0.9/0.6-1.0 cm LVIDd: 4.11 3.9-5.3/4.2-5.9 cm LVIDd Index: 2.04 2.4-3.2/2.2-3.1 cm/m2 LVIDs: 3.08 2.0-3.6 cm LVPWd: 1.23 0.7-1.1 cm LA Diam: 3.50 2.7-3.8/3.0-4.0 cm LAIDs Index: 1.74 1.5-2.3 cm/m2 LV Mass: 226.79 67-162/88-224 g LV Mass Index: 112.83 43-95/49-115 g/m2 LVOT Diam: 1.80 3.0+(-)1.3 cm 2D Systolic Function EF 4C: 53.40 >55% Mitral Valve MV VTI: 0.33 MV Pk Enrike: 0.88 MV Mn Enrike: 0.51 MV Pk Grad: 3.00 MV Mn Grad: 1.00 MV Pk E: 0.67 MV PK A: 0.82 MV Decel Time: 314.00 E/A: 0.80 E'Lateral: 6.53 E'Medial: 3.59 E/E' Med: 18.60 E/E' Lat: 10.20 PHT: 92.00 MVA PHT: 2.39 MVA Continuity: 2.05 Decel Teller: 2.13 Aortic Valve AoV Pk Enrike: 1.62 AoV Mn Enrike: 1.25 AoV VTI: 0.39 AoV Pk Grad: 10.00 Aov Mn Grad: 7.00 EMELIA Cont.VTI: 1.77 LVOT LVOT Pk Enrike: 1.06 LVOT Mn Enrike: 0.85 LVOT VTI: 0.27 LVOT Pk Grad: 4.00 LVOT Mn Grad: 3.00 LVOT Diam: 1.80 LVOT Area: 2.54 Diastolic Function MV Pk E: 0.67 MV Pk A: 0.82 E/A: 0.80 E'Medial: 3.59 E/E' Med: 18.60 E' Laterial: 6.53 E/E' Lat: 10.20 Right Ventricle TAPSE (mm): 21.70 TVS' Enrike: 10.40 Tricuspid Valve TR Pk Enrike: 2.14 TR Pk Grad: 18.00 RA Press: 3.00 RVSP: 21.00 Great Vessels Aorta Sinus of Valsalva: 3.10 2.0-3.5 cm Ao Asc: 3.20 2.1-3.4 cm Ao Arch: 2.90 Pulmonary Valve PV Pk Enrike: 0.80 Peak PV Grad: 3.00 Updated in Other Vendor System with Status of Final Taco Soto MD electronically signed on 09/29/2023 1:31:25 PM with status of Final
== END ==
LOC: HO.CARD 07:48
PROVIDERS: PCP Internal Medicine; Visit Provider Internal Medicine
DX: I10 Essential (primary) hypertension (principal); Z82.49 Family history of ischemic heart disease and other diseases of the circulatory system
CPT/HCPCS: 93306

== ENCOUNTER → 2023-09-27 07:52 | Outpatient (BNV) | payer MEDICARE, SELFPAY | PROVIDERS: PCP Internal Medicine; Visit Provider Internal Medicine | DX: I36.1 Nonrheumatic tricuspid (valve) insufficiency (principal) | CPT/HCPCS: 93306 ==

== ENCOUNTER 2023-11-02 23:02 | Emergency (ER) | payer MEDICARE, SELFPAY ==
--- NOTE | 2023-11-02 | ECG_ITS ---
Test Reason : FALL Blood Pressure : / mmHG Vent. Rate : 063 BPM Atrial Rate : 063 BPM P-R Int : 198 ms QRS Dur : 164 ms QT Int : 452 ms P-R-T Axes : 036 -29 101 degrees QTc Int : 462 ms Normal sinus rhythm Left bundle branch block Abnormal ECG When compared with ECG of 18-DEC-2021 11:48, No significant change was found Referred By: Generic ED Physician Electronically Signed By:ZOHREH EDMOND MD
--- NOTE | ~2023-11-02 | XR_ITS ---
EXAMINATION: XR THORACOLUMBAR SPINE CLINICAL INFORMATION: Pain after fall. COMPARISON: 12/18/2021 TECHNIQUE: AP and lateral views FINDINGS: The vertebral alignment is normal. No intrinsic bony abnormality. Mild loss of disc space height throughout the thoracic spine, with small accompanying endplate osteophytes. No fracture or subluxation. Paraspinal soft tissues unremarkable. XR/XR thoracic spine 2V IMPRESSION: No acute fracture or traumatic malalignment.
--- NOTE | ~2023-11-02 | CT_ITS ---
EXAMINATION: HEAD CT WITHOUT CONTRAST CERVICAL SPINE CT WITHOUT CONTRAST CLINICAL INFORMATION: Fall. Pain. COMPARISON: 12/18/2021 TECHNIQUE: Contiguous axial imaging of the head was performed without the administration of IV contrast. Axial multidetector volumetric images were also performed through the cervical spine without intravenous contrast. Multiplanar reconstructed images in coronal and sagittal orientations were submitted. This CT examination was performed using dose optimization techniques as appropriate, variously including the following: *Automated exposure control *Adjustment of mA and/or kV according to patient size (this includes techniques or standardized protocols for targeted exams where dose is matched to indication/reason for exam; i.e. extremities or head) *Use of iterative reconstruction technique DOSE: 1115 mGy-cm FINDINGS: HEAD: There is no evidence of acute intracranial hemorrhage or territorial infarction. No abnormal mass-effect or midline shift. No extra-axial fluid collections. Pressley to white matter differentiation is well preserved. Mild enlargement of the ventricles, sulci, and extra-axial CSF spaces is indicative of parenchymal volume loss. A few foci of hypoattenuation in the subcortical and periventricular white matter are most consistent with chronic microangiopathic changes. The soft tissues and osseous structures are normal. Mild mucoperiosteal thickening in the frontoethmoidal recesses. Paranasal sinuses and mastoid air cells otherwise clear. Cerumen is present in the left external auditory canal. CERVICAL SPINE: Vertebral body heights in the cervical spine are normal. There is loss of vertebral body height at the T3 level which appears size compared to prior, likely the result of an old compression deformity. No acute fractures of the vertebral bodies or posterior elements. No acute subluxation. Anterolisthesis of T1 on T2 (2 mm) is chronic and likely related to facet arthropathy. Degenerative changes are present at the craniocervical and atlantoaxial articulations, though normal alignment is maintained. Mild degenerative disc disease at C6-C7 with more minimal degenerative disc disease at other levels. Multilevel facet arthropathy is most notable at C4-C5 bilaterally and at C3-C4 on the left. No acute central canal stenosis. Osseous neural foraminal encroachment is evident at multiple levels bilaterally, most notable on the left at C5-C6. No significant paravertebral soft tissue swelling. Atherosclerotic calcifications are present in the carotid arteries. Imaged portions of the lung apices are clear. CT/CT cervical spine wo IV con IMPRESSION: 1. No acute intracranial pathology. 2. No acute fracture or acute malalignment in the cervical spine. Old compression deformity at T3. Mild multilevel degenerative spondylosis in the cervical spine.
[2023-11-02 23:24] VITALS: BP 130/70; BP 180/82; PULSE 65; PULSE 80; RESP 12; TEMP 37.1; O2SAT 97; O2SAT 98; BMI 33.2
--- NOTE | 2023-11-02 23:54 | ED.GENADULT ---
HPI - General Adult General Chief complaint: Fall Stated complaint: FALL Time Seen by Provider: 11/02/23 23:19 Source: patient, RN notes reviewed and old records reviewed Mode of arrival: EMS Limitations: no limitations History of Present Illness HPI narrative: 83-year-old female presents for evaluation after a fall Reports that she was walking from 1 room to the other when she, fell backwards with my feet in the air. ? She is unsure if she tripped or slipped on something but denies any prodrome of dizziness, lightheadedness, chest pain or palpitation She reports that she believes she struck the back of her head but did not lose consciousness She has midback pain Patient arrives in a C-collar from EMS She is not anticoagulated Related Data Home Medications Medication Instructions Recorded Confirmed ascorbic acid (vitamin C) 1,000 mg 1,000 cap PO DAILY 10/30/20 10/02/23 capsule,extended release cholecalciferol (vitamin D3) 25 25 mcg PO DAILY 10/30/20 10/02/23 mcg (1,000 unit) capsule (Vitamin D3) docusate sodium 50 mg capsule 50 mg PO BID 10/30/20 10/02/23 vitamin E 670 mg (1,000 unit) 1,000 unit PO DAILY 10/30/20 10/02/23 capsule coenzyme Q10 50 mg capsule (Co 50 mg PO DAILY 10/01/21 10/02/23 Q-10) acetaminophen 500 mg tablet 500 mg PO Q6H PRN Pain 10/03/22 10/02/23 multivitamin 1 tab PO DAILY 10/03/22 10/02/23 Previous Rx's Medication Instructions Recorded folic acid 1 mg tablet 1 tab PO DAILY 01/26/22 atenolol 50 mg-chlorthalidone 25 1 tab PO DAILY 90 days #90 tabs 08/18/23 mg tablet sertraline 50 mg tablet 50 mg PO DAILY 90 days #90 tabs 08/18/23 lisinopril 20 mg tablet 20 mg PO DAILY 90 days #90 tabs 08/24/23 cyanocobalamin (vitamin B-12) 1,000 mcg sublingual DAILY #90 tabs 10/02/23 1,000 mcg sublingual tablet Allergies Allergy/AdvReac Type Severity Reaction Status Date / Time No Known Allergies Allergy Verified 11/02/23 23:24 [No Known Allergies*] Review of Systems Constitutional: Constitutional: Denies chills and Reports headache(s) Eyes: Eyes: Denies blurry vision ENT: Reports headache(s) and Reports neck pain Cardiovascular: Cardiovascular: Denies chest pain, Denies syncope and Denies dyspnea Respiratory: Respiratory: Denies cough and Denies dyspnea Gastrointestinal: Gastrointestinal: Denies abdominal pain, Denies nausea and Denies vomiting Musculoskeletal: Musculoskeletal: Reports back pain, Denies deformity, Reports neck pain and Denies numbness Integumentary/Breasts: Skin/Breast: Denies rash Neurologic: Denies syncope, Reports headache(s) and Denies numbness PMFSH Past Medical History Medical History History of head injury Polyneuropathy Anemia, pernicious Constipation by delayed colonic transit Anxiety, generalized Lipid disorder Hypertension, essential Surgical History S/P excision of lipoma H/O rectal polypectomy H/O: hysterectomy Family History Family History Father HTN (hypertension) Heart attack Mother CHF (congestive heart failure) Afib HTN (hypertension) Other Substance use disorder Social History Social History Household Members: None Housing: House Are you a primary career development coordinator to a significant other at home: No Do you presently have visiting nurse or other home services: No Alcohol intake: never Patient Tobacco Use Status: Former Tobacco user Quit Date: 1982 Tobacco use type: Cigarette Years Smoked: since age 14 e-Cigarette/Vaping Use: Never Used Second Hand Smoke Exposure: No Use of substances other than those prescribed or required for medical reasons: No Any prior treatment program specific to substance use: No Advance Directives: No Advance Directives Information Provided: Yes service: No Current occupational status: retired Cognitive needs: No Hearing needs: No Vision needs: Yes Physical Exam ED Vital Signs: Vital Signs - 24 hr 11/02/23 23:24 Temperature 98.7 F Pulse Rate 65 Respiratory Rate 12 Blood Pressure 180/82 H Pulse Oximetry 98 Oxygen Delivery Method Room Air BMI result Body Mass Index 33.2 Const General: healthy appearing, comfortable, no acute distress, alert and awake Nutritional Appearance: well nourished Orientation/consciousness: patient oriented x3 HENMT Head: Yes normocephalic and Yes atraumatic Eyes Eyelids: Yes eyelids normal Conjunctivae: conjunctivae normal Sclerae: sclerae normal Corneas: corneas normal Pupils: Equal, round and reactive pupils present EOM: EOMs intact bilaterally Neck Neck: No full ROM Resp Effort & Inspection: normal respiratory effort, able to speak in complete sentences, no audible wheezes and not labored Auscultation: clear to auscultation bilaterally Cardio Rate: regular rate Rhythm: regular rhythm GI Inspection: No distended Palpation (GI): Soft to palpation, not firm, nontender, no guarding and not rigid Auscultation: normoactive bowel sounds Back/Spine/Pelvis Cervical Spine: collar present Skin General skin exam: no rashes or lesions noted and elasticity normal Neuro General: patient oriented x3 Cranial nerves: Yes CN's II-XII intact bilaterally, Yes Equal, round and reactive pupils present and Yes Bilaterally intact EOM present Cognition (Neuro): normal cognition Extrem Other: Moving all extremities well without any obvious deformities. No tenderness over the ablation the pelvis or hips bilaterally Course Reevaluation(s) Reevaluation #1: She is CT brain cervical spine shows no acute traumatic injury. Area removed the patient's C-collar. She will not get x-ray of the thoracic spine. She does have an apparent old T to compression deformity on CT scan noted. Patient was given Tylenol Time: 00:51 Medical Decision Making Medical Decision Making MDM Narrative: [age] old female presents for evaluation after a fall. She reports it was a mechanical fall but is unsure exactly how she tripped/slipped. Denies any prodrome of dizziness, lightheadedness, chest pain, shortness of breath. He complains of back pain after the fall. Plan for imaging only at this time. Differential Diagnosis Differential Diagnoses: The differential diagnosis associated with the presentation includes Nonsyncopal fall Syncope Concussion Contusion Intracranial hemorrhage Cervical strain Cervical back Independent Interpretation I performed an independent interpretation of an: EKG (Normal sinus rhythm with a rate of 63 beats per minute. Left bundle branch block. Bundle-branch block was previously noted on EKG from December of 2021), Plain X-Ray (No obvious compression deformity) and CT Scan (Agree with Radiology interpretation. No obvious intracranial hemorrhage, no obvious cervical spine fracture) Radiology Impression Discussion of test interpretation with radiology: I have reviewed the radiologist's reading. Radiologist Impression: No acute intracranial hemorrhage No acute treatment fracture, subluxation of cervical spine Thoracic x-ray without acute fracture Discharge Plan Discharge Clinical Impression: Fall Patient Disposition: Home, Self-Care Instructions: Fall Prevention (ED) Additional Instructions: The CT scan of your brain, cervical spine were negative for fractures or traumatic injuries. The x-ray of your thoracic spine/midback was also negative for fracture You will likely be sore tomorrow Take Tylenol as needed for pain Follow-up with your primary doctor Return for new or worsening symptom Prescriptions: No Action folic acid 1 mg tablet 1 tab PO DAILY 4RF sertraline 50 mg tablet 50 mg PO DAILY 90 Days Qty: 90 1RF atenolol-chlorthalidone 50-25 mg tablet 1 tab PO DAILY 90 Days Qty: 90 1RF lisinopril 20 mg tablet 20 mg PO DAILY 90 Days Qty: 90 0RF vitamin E 1,000 unit Capsule 1,000 unit PO DAILY Colace 50 mg Capsule 50 mg PO BID Vitamin C 1,000 mg Capsule, Extended Release 1,000 cap PO DAILY cholecalciferol (vitamin D3) [Vitamin D3] 25 mcg (1,000 unit) Capsule 25 mcg PO DAILY coenzyme Q10 [Co Q-10] 50 mg Capsule 50 mg PO DAILY multivitamin Tablet 1 tab PO DAILY acetaminophen [Tylenol Ex Str Rapid Release] 500 mg Tablet 500 mg PO Q6H PRN (Reason: Pain) cyanocobalamin (vitamin B-12) 1,000 mcg Tablet, Sublingual 1,000 mcg SUBLINGUAL DAILY Qty: 90 4RF
[2023-11-03] MEDS: Acetaminophen 325 MG TABLET 975 MG PO (01:52)
[2023-11-03 01:53] VITALS: BP 158/54; PULSE 59; RESP 17; TEMP 36.5; O2SAT 99
== END 2023-11-03 02:05 | disposition home or self-care (01) ==
PROVIDERS: Emergency Provider Internal Medicine; PCP Internal Medicine
DX: S13.4XXA Sprain of ligaments of cervical spine, initial encounter (principal); M54.2 Cervicalgia; R51.9 Headache, unspecified; M54.6 Pain in thoracic spine; I44.7 Left bundle-branch block, unspecified; W01.0XXA Fall on same level from slipping, tripping and stumbling without subsequent striking against object, initial encounter; Y93.9 Activity, unspecified; Y92.9 Unspecified place or not applicable; Y99.9 Unspecified external cause status
CPT/HCPCS: 70450; 72070; 72125; 93005; 99284; 99285

== ENCOUNTER → 2023-11-02 23:16 | Outpatient (BNV) | payer MEDICARE, SELFPAY | PROVIDERS: Emergency Provider Internal Medicine; PCP Internal Medicine; Visit Provider Internal Medicine Cardiovascular Disease | DX: R94.31 Abnormal electrocardiogram [ECG] [EKG] (principal) | CPT/HCPCS: 93010 ==

== ENCOUNTER 2023-11-28 09:43 | Outpatient (AMB) | payer MEDICARE, SELFPAY ==
--- NOTE | 2023-11-28 09:45 | MHC.PC.OV ---
Vital Signs 11/28/23 09:46 Height 5 ft 7 in Weight 197 lb 4 oz BMI 30.9 BP 146/74 H Blood Pressure Location Lt brachial Position Sitting Pulse 66 Pulse Source Pulse Oximeter Pulse Oximetry (%) 96 Oxygen Delivery Method Room Air Intake Visit Reasons: 6m follow up Allergies No Known Allergies [No Known Allergies*] Allergy (Verified 11/28/23 09:46) Tobacco use date assessed: 11/28/23 Fall risk assessment: 1 Fall in past year Last assessed Fall Risk: 11/28/23 Dental Screening Dental Screen Date: 11/28/23 Did you have a dental visit in the last 12 months?: Yes Did you have a dental problem in the last 6 months where you did not have access to dental care?: No Was dental information given to patient?: Patient has dentist HPI 6m follow up HPI Details Patient is 83-year-old female came in today for regular follow-up appointment Patient had echocardiogram in September of last year, reviewed it was age appropriate without any valvular pathology Patient have pernicious anemia , she is established with Hematology Currently her B12 level is on hold as level was above 1000 We will repeat labs again before her next visit in February Hypertension: Patient is on atenolol chlorthalidone 50-25 mg, and lisinopril 20 mg blood pressure is stable .? No side effects Patient says that she is checking blood pressure at home and it runs around 130s usually, it is slightly high when she is in doctor's office Anxiety is stable with sertraline 50 mg.? BMI is elevated patient is trying to lose weight Follow-up 3 months labs to be done before visit [facility] Medical History History of head injury Polyneuropathy Anemia, pernicious Constipation by delayed colonic transit Anxiety, generalized Lipid disorder Hypertension, essential Surgical History S/P excision of lipoma H/O rectal polypectomy H/O: hysterectomy Family History Father HTN (hypertension) Heart attack Mother CHF (congestive heart failure) Afib HTN (hypertension) Other Substance use disorder Social History Household Members: None Housing: House Are you a primary career transition specialist to a significant other at home: No Do you presently have visiting nurse or other home services: No Alcohol intake: never Patient Tobacco Use Status: Former Tobacco user Quit Date: 1982 Tobacco use type: Cigarette Years Smoked: since age 14 e-Cigarette/Vaping Use: Never Used Second Hand Smoke Exposure: No service: No Current occupational status: retired Cognitive needs: No Hearing needs: No Vision needs: Yes Questionnaire Thrive Questionnaire Date Thrive assessed: 12/07/22 MICHELLE-7 AMB Questionnaire MICHELLE-7 Date MICHELLE - 7 assessed: 12/07/22 Source: Developed by Drs. Ghanshyam Moreno, Jenna Ulloa, Juve Jeong and colleagues, with an educational nestor from [employer]. Review of Systems Const Denies chills and Denies fever(s) ENT Denies epistaxis and Denies nasal discharge Card Denies chest pain Resp Denies chest congestion, Denies cough and Denies hemoptysis GI Denies diarrhea and Denies nausea Skin/Breast Denies rash Neuro Reports no additional complaints Psych Reports no additional complaints Endo Reports no additional complaints Physical exam (Primary Care) Vital Signs: Last Vital Signs Pulse 66 11/28/23 09:46 BP 146/74 H 11/28/23 09:46 Pulse Ox 96 11/28/23 09:46 Oxygen Delivery Method Room Air 11/28/23 09:46 BMI result Body Mass Index 30.9 Tobacco/Smoking Status: Tobacco use Status Tobacco use date assessed 11/28/23 11/28/23 09:48 Patient Tobacco Use Status Former Tobacco user 11/28/23 09:48 Tobacco use type Cigarette 11/28/23 09:48 e-Cigarette/Vaping Use Never Used 11/28/23 09:48 Thrive Assessment: Date of Thrive Assessment Date Thrive assessed 12/07/22 11/28/23 09:48 Const General: cooperative, comfortable and no acute distress Orientation/consciousness: patient oriented x3 HENMT Head: Yes normocephalic Eyes General: appearance normal, both eyes and all related structures Neck Neck: Yes supple Resp Effort & Inspection: normal respiratory effort, no cough and no stridor Cardio Rhythm: regular rhythm Heart sounds: S1 normal heart sound present and S2 normal heart sound present Skin General skin exam: turgor normal Neuro General: patient oriented x3, tone normal and moves all extremities Extrem Right lower extremity: no edema Left lower extremity: no edema Assessment and Plan Assessment & Plan (1) Hypertension, essential: Code(s): I10 - Essential (primary) hypertension (2) Lipid disorder: Comment: Make healthy food choices . Eat lots of fruits, vegetables, whole grains, and low-fat dairy products. Limit the amount of meat and fried or fatty foods that you eat. Be active Walk, garden, or do something active for 30 minutes or more on most days of the week. If you smoke, stop smoking. Smoking increases the chance of heart attack or stroke, or develop cancer.If you are over weight, Lose weight, Being overweight increases the risk of many health problems. Avoid alcohol Alcohol can increase blood sugar and blood pressure. Code(s): E78.9 - Disorder of lipoprotein metabolism, unspecified (3) Anxiety, generalized: Code(s): F41.1 - Generalized anxiety disorder (4) Pernicious anemia: Code(s): D51.0 - Vitamin B12 deficiency anemia due to intrinsic factor deficiency (5) Obesity due to excess calories: Code(s): E66.09 - Other obesity due to excess calories Qualifiers: Body mass index: BMI 32.0-32.9 Obesity classification: adult class 1 (BMI 30 - 34.9) Serious obesity comorbidity presence: with serious comorbidity Qualified Code(s): E66.09 - Other obesity due to excess calories; Z68.32 - Body mass index [BMI] 32.0-32.9, adult Plan Patient is 83-year-old female came in today for regular follow-up appointment Patient had echocardiogram in September of last year, reviewed it was age appropriate without any valvular pathology Patient have pernicious anemia , she is established with Hematology Currently her B12 level is on hold as level was above 1000 We will repeat labs again before her next visit in February Hypertension: Patient is on atenolol chlorthalidone 50-25 mg, and lisinopril 20 mg blood pressure is stable .? No side effects Patient says that she is checking blood pressure at home and it runs around 130s usually, it is slightly high when she is in doctor's office Anxiety is stable with sertraline 50 mg.? BMI is elevated patient is trying to lose weight Follow-up 3 months labs to be done before visit Orders: Orders Comprehensive Met. Panel 3 Months D51.0 - Vitamin B12 deficiency anemia due to intrinsic factor deficiency, E66.09 - Other obesity due to excess calories, E78.9 - Disorder of lipoprotein metabolism, unspecified, F41.1 - Generalized anxiety disorder, I10 - Essential (primary) hypertension Vitamin B12 3 Months D51.0 - Vitamin B12 deficiency anemia due to intrinsic factor deficiency, E66.09 - Other obesity due to excess calories, E78.9 - Disorder of lipoprotein metabolism, unspecified, F41.1 - Generalized anxiety disorder, I10 - Essential (primary) hypertension Complete Blood Count Auto Diff 3 Months D51.0 - Vitamin B12 deficiency anemia due to intrinsic factor deficiency, E66.09 - Other obesity due to excess calories, E78.9 - Disorder of lipoprotein metabolism, unspecified, F41.1 - Generalized anxiety disorder, I10 - Essential (primary) hypertension LDL Cholesterol Direct 3 Months D51.0 - Vitamin B12 deficiency anemia due to intrinsic factor deficiency, E66.09 - Other obesity due to excess calories, E78.9 - Disorder of lipoprotein metabolism, unspecified, F41.1 - Generalized anxiety disorder, I10 - Essential (primary) hypertension Coding Level of Care Code Est Pt Level 4 (56347) Diagnoses Hypertension, essential I10 Lipid disorder E78.9 Anxiety, generalized F41.1 Pernicious anemia D51.0 Class 1 obesity due to excess calories with serious comorbidity and body mass index (BMI) of 32.0 to 32.9 in adult E66.09; Z68.32 Body mass index: BMI 32.0-32.9 Obesity classification: adult class 1 (BMI 30 - 34.9) Serious obesity comorbidity presence: with serious comorbidity
[2023-11-28 09:46] VITALS: BP 146/74; PULSE 66; O2SAT 96; BMI 30.9
== END 2023-11-28 10:49 | disposition home or self-care (01) ==
PROVIDERS: PCP Internal Medicine; Visit Provider Internal Medicine
DX: I10 Essential (primary) hypertension (principal); E78.9 Disorder of lipoprotein metabolism, unspecified; F41.1 Generalized anxiety disorder; D51.0 Vitamin B12 deficiency anemia due to intrinsic factor deficiency; E66.09 Other obesity due to excess calories; Z68.32 Body mass index [BMI] 32.0-32.9, adult
CPT/HCPCS: 99214

== ENCOUNTER 2024-02-28 09:26 | Outpatient (AMB) | payer MEDICARE, SELFPAY ==
[2024-02-28 09:27] VITALS: BP 128/70; PULSE 72; O2SAT 97; BMI 31.6
--- NOTE | 2024-02-28 09:27 | MHC.PC.OV ---
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 Required: No Accompanied by: Self / Same As Patient Allergies No Known Allergies [No Known Allergies*] Allergy (Verified 02/28/24 09:27) Medication List - Last Reconciled 02/28/24 by Angus Mcmullen MD acetaminophen 500 mg PO Q6H PRN ascorbic acid (vitamin C) ER 1,000 caps PO DAILY atenolol-chlorthalidone 50-25 mg 1 tab PO DAILY 90 days cholecalciferol (vitamin D3) (Vitamin D3) 25 mcg PO DAILY coenzyme Q10 (Co Q-10) 50 mg PO DAILY cyanocobalamin (vitamin B-12) 1,000 mcg sublingual DAILY docusate sodium 50 mg PO BID folic acid 1 tab PO DAILY lisinopril 20 mg PO DAILY 90 days multivitamin 1 tab PO DAILY sertraline 50 mg PO DAILY 90 days vitamin E 1,000 units PO DAILY Tobacco use date assessed: 11/28/23 Fall risk assessment: 1 Fall in past year Last assessed Fall Risk: 02/28/24 Dental Screening Dental Screen Date: 11/28/23 HPI 9m follow up HPI Details Patient is 83-year-old female came in today for regular follow-up appointment She was supposed to have labs done before this visit but patient forgot she will have them today Patient have pernicious anemia , she is established with Hematology She continued take B12 once a week level is above 100 but we will see what the level shows this time Hypertension: Patient is on atenolol chlorthalidone 50-25 mg, and lisinopril 20 mg blood pressure is stable .? No side effects Patient says that she is checking blood pressure at home and it runs around 130s usually Anxiety is stable with sertraline 50 mg.? BMI is elevated patient is trying to lose weight Follow-up mid June [facility] Medical History History of head injury Polyneuropathy Anemia, pernicious Constipation by delayed colonic transit Anxiety, generalized Lipid disorder Hypertension, essential Surgical History S/P excision of lipoma H/O rectal polypectomy H/O: hysterectomy Family History Father HTN (hypertension) Heart attack Mother CHF (congestive heart failure) Afib HTN (hypertension) Other Substance use disorder Social History Household Members: None Housing: House Are you a primary critical care technician to a significant other at home: No Do you presently have visiting nurse or other home services: No Alcohol intake: never Patient Tobacco Use Status: Former Tobacco user Quit Date: 1982 Tobacco use type: Cigarette Years Smoked: since age 14 e-Cigarette/Vaping Use: Never Used Second Hand Smoke Exposure: No service: No Current occupational status: retired Cognitive needs: No Hearing needs: No Vision needs: Yes Questionnaire Thrive Questionnaire Date Thrive assessed: 12/07/22 MICHELLE-7 AMB Questionnaire MICHELLE-7 Date MICHELLE - 7 assessed: 12/07/22 Source: Developed by Drs. Ghanshyam Moreno, Jenna Ulloa, Juve Jeong and colleagues, with an educational nestor from [employer]. Review of Systems Const Denies chills and Denies fever(s) ENT Denies epistaxis and Denies nasal discharge Card Denies chest pain Resp Denies chest congestion, Denies cough and Denies hemoptysis GI Denies diarrhea and Denies nausea Skin/Breast Denies rash Neuro Reports no additional complaints Psych Reports no additional complaints Endo Reports no additional complaints Physical exam (Primary Care) Vital Signs: Last Vital Signs Pulse 72 02/28/24 09:27 BP 128/70 02/28/24 09:27 Pulse Ox 97 02/28/24 09:27 Oxygen Delivery Method Room Air 02/28/24 09:27 BMI result Body Mass Index 31.6 Tobacco/Smoking Status: Tobacco use Status Tobacco use date assessed 11/28/23 02/28/24 09:27 Patient Tobacco Use Status Former Tobacco user 02/28/24 09:27 Tobacco use type Cigarette 02/28/24 09:27 e-Cigarette/Vaping Use Never Used 02/28/24 09:27 Thrive Assessment: Date of Thrive Assessment Date Thrive assessed 12/07/22 02/28/24 09:27 Const General: cooperative, comfortable and no acute distress Orientation/consciousness: patient oriented x3 HENMT Head: Yes normocephalic Eyes General: appearance normal, both eyes and all related structures Neck Neck: Yes supple Resp Effort & Inspection: normal respiratory effort, no cough and no stridor Cardio Rhythm: regular rhythm Heart sounds: S1 normal heart sound present and S2 normal heart sound present Skin General skin exam: turgor normal Neuro General: patient oriented x3, tone normal and moves all extremities Extrem Right lower extremity: no edema Left lower extremity: no edema Assessment and Plan Assessment & Plan (1) Hypertension, essential: Code(s): I10 - Essential (primary) hypertension (2) Lipid disorder: Comment: Make healthy food choices . Eat lots of fruits, vegetables, whole grains, and low-fat dairy products. Limit the amount of meat and fried or fatty foods that you eat. Be active Walk, garden, or do something active for 30 minutes or more on most days of the week. If you smoke, stop smoking. Smoking increases the chance of heart attack or stroke, or develop cancer.If you are over weight, Lose weight, Being overweight increases the risk of many health problems. Avoid alcohol Alcohol can increase blood sugar and blood pressure. Code(s): E78.9 - Disorder of lipoprotein metabolism, unspecified (3) Anxiety, generalized: Code(s): F41.1 - Generalized anxiety disorder (4) Pernicious anemia: Code(s): D51.0 - Vitamin B12 deficiency anemia due to intrinsic factor deficiency (5) Obesity due to excess calories: Code(s): E66.09 - Other obesity due to excess calories Qualifiers: Obesity classification: adult class 1 (BMI 30 - 34.9) Serious obesity comorbidity presence: with serious comorbidity Body mass index: BMI 32.0-32.9 Qualified Code(s): E66.09 - Other obesity due to excess calories; Z68.32 - Body mass index [BMI] 32.0-32.9, adult Plan Patient is 83-year-old female came in today for regular follow-up appointment Patient had echocardiogram in September of last year, reviewed it was age appropriate without any valvular pathology Patient have pernicious anemia , she is established with Hematology Currently her B12 level is on hold as level was above 1000 We will repeat labs again before her next visit in February Hypertension: Patient is on atenolol chlorthalidone 50-25 mg, and lisinopril 20 mg blood pressure is stable .? No side effects Patient says that she is checking blood pressure at home and it runs around 130s usually, it is slightly high when she is in doctor's office Anxiety is stable with sertraline 50 mg.? BMI is elevated patient is trying to lose weight Follow-up 3 months labs to be done before visit Coding Level of Care Code Est Pt Level 3 (46255) Diagnoses Hypertension, essential I10 Lipid disorder E78.9 Anxiety, generalized F41.1 Pernicious anemia D51.0 Class 1 obesity due to excess calories with serious comorbidity and body mass index (BMI) of 32.0 to 32.9 in adult E66.09; Z68.32 Obesity classification: adult class 1 (BMI 30 - 34.9) Serious obesity comorbidity presence: with serious comorbidity Body mass index: BMI 32.0-32.9
== END 2024-02-28 10:23 | disposition home or self-care (01) ==
PROVIDERS: PCP Internal Medicine; Visit Provider Internal Medicine
DX: I10 Essential (primary) hypertension (principal); E78.9 Disorder of lipoprotein metabolism, unspecified; F41.1 Generalized anxiety disorder; D51.0 Vitamin B12 deficiency anemia due to intrinsic factor deficiency; E66.09 Other obesity due to excess calories; Z68.32 Body mass index [BMI] 32.0-32.9, adult
CPT/HCPCS: 99213

== ENCOUNTER 2024-02-28 09:50 | Outpatient (REF) | payer MEDICARE, SELFPAY ==
[2024-02-28 13:12] LABS: MANUAL DIFF FLAG NO
[2024-02-28 13:29] LABS: Basophils Absolute Auto 0.1 X10*3/uL (0.0-0.2); Basophils Percent Auto 1.4 % (0-2); Eosinophils Absolute Auto 0.2 X10*3/uL (0.0-0.4); Hematocrit 42.9 % (37.0-47.0); Hemoglobin 14.2 g/dl (12.0-16.0); Imm Gran Abs Auto 0.01 X10*3/uL (0.00-0.03); Imm Gran Pct Auto 0.2 % (0.0-0.4); Lymphocytes Absolute Auto 1.8 X10*3/uL (1.2-4.9); Lymphocytes Percent Auto 35.4 % (20-40); Mean Corpuscular HGB Conc 33.1 g/dl (31.0-35.0); Mean Corpuscular Hemoglobin 29.3 pg (27.0-33.0); Mean Corpuscular Volume 88.6 fL (80.0-98.0); Mean Platelet Volume 10.4 fL (9.4-12.3); Monocytes Absolute Auto 0.3 X10*3/uL (0.1-1.2); Monocytes Percent Auto 6.2 % (2-11); Neutrophils Absolute Auto 2.6 x10*3/uL (2.0-8.3); Neutrophils Percent Auto 52.8 % (45-73); Platelet Count 247 X10*3/uL (160-400); Red Blood Count 4.84 X10*6/uL (4.20-5.50); Red Cell Distribution Width 12.8 % (11.0-16.0)
[2024-02-28 14:01] LABS: Alanine Aminotransferase 15 U/L (0-31); Albumin Level 4.1 g/dL (3.5-5.0); Alkaline Phosphatase 95 U/L (39-117); Anion Gap 13 (12-20); Aspartate Amino Transferase 24 U/L (5-31); Bilirubin Total 0.5 mg/dL (0.0-1.0); Blood Urea Nitrogen 19 mg/dL (9-16); Calcium 9.7 mg/dL (8.4-10.2); Carbon Dioxide 27 mmol/L (22-29); Chloride 102 mmol/L (96-108); Estimated Glomerular Filt Rate > 60; Glucose Random 100 mg/dL (60-115); Potassium 4.3 mmol/L (3.3-5.1); Sodium 138 mmol/L (135-145); Total Protein 7.3 g/dL (6.5-8.0)
[2024-02-28 14:24] LABS: Folate 16.1 ng/mL (> or = 4.0); Vitamin B12 554 pg/mL (200-900)
[2024-02-29 11:23] LABS: LDL Cholesterol Direct 191 mg/dL (<100)
== END 2024-02-28 09:51 | disposition home or self-care (01) ==
LOC: HO.HMGCLDS 09:50
PROVIDERS: PCP Internal Medicine; Visit Provider Internal Medicine
DX: E78.9 Disorder of lipoprotein metabolism, unspecified (principal); F41.1 Generalized anxiety disorder; D51.0 Vitamin B12 deficiency anemia due to intrinsic factor deficiency; E66.09 Other obesity due to excess calories; I10 Essential (primary) hypertension
CPT/HCPCS: 36415; 80053; 82607; 82746; 83721; 85025

== ENCOUNTER 2024-06-26 09:17 | Outpatient (AMB) | payer MEDICARE, SELFPAY ==
--- NOTE | 2024-06-26 09:18 | AM.OFFWIN_ITS ---
Intake Vital Signs 06/26/24 09:19 Height 5 ft 7 in Weight 207 lb BMI 32.4 BP 136/84 Blood Pressure Location Lt brachial Position Sitting Pulse 66 Pulse Source Pulse Oximeter Temp 98.1 F Temp Source Oral Pulse Oximetry (%) 96 Oxygen Delivery Method Room Air Intake Visit Reasons: EP- RT big toe in pain Intake Note: Pt c/o RT great toe pain. Started this morning. ? Gout Patient Tobacco Use Status: Former Tobacco user Allergies No Known Allergies [No Known Allergies*] Allergy (Verified 06/26/24 09:19) Do you need a note to return to daycare/school/sports/work: No HPI EP- RT big toe in pain HPI Details This note is constructed using voice recognition software. While every effort has been made to ensure accuracy, longitudinal float operator errors may have been included. The patient is a 84 year old female who presents to the clinic today with right great toe pain at the distal tip since waking this morning. She denies having injured the area, ever having an issue with this before, or ever having gout in the past. 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 [facility] [place] Medical History History of head injury Polyneuropathy Anemia, pernicious Constipation by delayed colonic transit Anxiety, generalized Lipid disorder Hypertension, essential Surgical History S/P excision of lipoma H/O rectal polypectomy H/O: hysterectomy Family History Father HTN (hypertension) Heart attack Mother CHF (congestive heart failure) Afib HTN (hypertension) Other Substance use disorder Social History Household Members: None Housing: House Are you a primary child care centre manager to a significant other at home: No Do you presently have visiting nurse or other home services: No Alcohol intake: never Patient Tobacco Use Status: Former Tobacco user Tobacco use type: Cigarette Years Smoked: since age 14 e-Cigarette/Vaping Use: Never Used Second Hand Smoke Exposure: No service: No Current occupational status: retired Cognitive needs: No Hearing needs: No Vision needs: Yes Review of Systems Const All systems reviewed & are unremarkable except as noted in HPI and below Physical Exam Vital Signs: Last Vital Signs Temp 98.1 F 06/26/24 09:19 Pulse 66 06/26/24 09:19 BP 136/84 06/26/24 09:19 Pulse Ox 96 06/26/24 09:19 Oxygen Delivery Method Room Air 06/26/24 09:19 BMI result Body Mass Index 32.4 Const General: cooperative, healthy appearing, comfortable, no acute distress and alert Orientation/consciousness: patient oriented x3 Limitations: no limitations Skin General skin exam: no rashes or lesions noted, elasticity normal and turgor normal Neuro General: patient oriented x3 Extrem Other: Tender to palpation at distal portion of great toe. Mild erythema and warmth to the first metatarsal pharyngeal joint on right 1st toe. General: Yes full ROM, Yes capillary refill normal and Yes normal exam except as noted Psych Appearance: grossly normal Mental Status: mental status grossly normal Speech and movement: Normal speech and movement present Affect: normal affect Assessment & Plan Assessment & Plan (1) Toe pain, right: Code(s): M79.674 - Pain in right toe(s) Plan: X-ray does not appear to show any fracture. Patient has concern for gout, she does meet probable criteria for this. We will treat with a systemic burst of prednisone for symptom management. Advised patient to follow up with PCP with worsening or failure to resolve. Plan See above for full details and plan. Orders: Orders XR foot RT 2V Today M79.674 - Pain in right toe(s) Medications: New prednisone 40 mg (2 x 20 mg) PO DAILY 6 tabs 0RF 3 days Coding Level of Care Code Est Pt Level 4 (45282) Diagnoses Toe pain, right M79.674
[2024-06-26 09:19] VITALS: BP 136/84; PULSE 66; TEMP 36.7; O2SAT 96; BMI 32.4
== END 2024-06-26 10:41 | disposition home or self-care (01) ==
PROVIDERS: PCP Internal Medicine; Visit Provider Registered Nurse
DX: M79.674 Pain in right toe(s) (principal)
CPT/HCPCS: 99214

== ENCOUNTER 2024-06-26 09:38 | Outpatient (REF) | payer MEDICARE, SELFPAY ==
--- NOTE | ~2024-06-26 | XR_ITS ---
EXAMINATION: XR FOOT, RIGHT CLINICAL INFORMATION: Pain at distal aspect of great toe. COMPARISON: None available. TECHNIQUE: 2 views of the right foot. FINDINGS: Bones are diffusely osteopenic. Moderate-sized plantar calcaneal enthesophyte. There is a bipartite configuration of the medial sesamoid of the great toe. Mild joint space narrowing and negligible osteophyte formation at interphalangeal joints. No erosions or periostitis. No specific source of pain is identified. There is no radiopaque foreign body. XR/XR foot RT 2V IMPRESSION: * No specific source of pain is identified in the distal aspect of the great toe. * No evidence of acute fracture or malalignment in the right foot. * Mild osteoarthrosis of the interphalangeal joints.
== END 2024-06-26 09:39 | disposition home or self-care (01) ==
LOC: HO.HMGCX 09:38
PROVIDERS: PCP Internal Medicine; Visit Provider Registered Nurse
DX: M79.674 Pain in right toe(s) (principal)
CPT/HCPCS: 73620

== ENCOUNTER 2024-07-05 11:12 | Outpatient (AMB) | payer MEDICARE, SELFPAY ==
[2024-07-05 11:13] VITALS: BP 156/82; PULSE 60; O2SAT 96; BMI 32.6
--- NOTE | 2024-07-05 11:14 | A.OFFVIS_ITS ---
Intake Vital Signs 07/05/24 11:13 Height 5 ft 7 in Weight 208 lb 4 oz BMI 32.6 BP 156/82 H Blood Pressure Location Lt brachial Position Sitting Pulse 60 Pulse Source Pulse Oximeter Pulse Oximetry (%) 96 Oxygen Delivery Method Room Air Intake Visit Reasons: [facility] G0439 Allergies No Known Allergies [No Known Allergies*] Allergy (Verified 07/05/24 11:13) Medication List - Last Reconciled 07/05/24 by Angus Mcmullen MD acetaminophen 500 mg PO Q6H PRN ascorbic acid (vitamin C) ER 1,000 caps PO DAILY atenolol-chlorthalidone 50-25 mg 1 tab PO DAILY 90 days cholecalciferol (vitamin D3) (Vitamin D3) 25 mcg PO DAILY coenzyme Q10 (Co Q-10) 50 mg PO DAILY docusate sodium 50 mg PO BID folic acid 1 tab PO DAILY ibuprofen 400 mg PO Q6H PRN lisinopril 20 mg PO DAILY 90 days multivitamin 1 tab PO DAILY sertraline 50 mg PO DAILY 90 days vitamin E 1,000 units PO DAILY Do you need a note to return to daycare/school/sports/work: No HPI [facility] G0439 HPI Details Patient is 84-year-old female came in today for follow-up visit Hypertension: Blood pressure is slightly elevated however at home patient is monitoring it and it runs in 130s She is taking atenolol chlorthalidone 50-25 mg, and lisinopril 20 mg daily, patient is tolerating medication She is having labs done every six-month and is due in September, order placed Lipid disorder: Diet-controlled patient has stopped taking Crestor Anxiety: Patient is on sertraline 50 mg once a day moods are stable Follow-up 6 months Mammogram and bone density order placed, patient would like to have it done at [facility] HPI Comments History of Present Illness Details AWV Medical/social history reviewed Past medical history reviewed [place] of care / care team list updated Surgical/ hospitalization history reviewed Current medications including OTC and supplements reviewed Family history reviewed Tobacco controlled form updated Alcohol use form updated Illicit drug use in social history reviewed Current diagnosis of depression ?screening updated Appropriate PHQ 2/PHQ-9 completed . Vital signs reviewed Alcohol tobacco drug use reviewed and discussed . MMSE completed . ? Fall risk: ?Assessed Fall history: ?None Have you had any falls with injury in the past year?? No Have you had 2 or more falls in the past year?? No Fall risk assessment completed Home safety discussed with the patient Functional ability assessed and discussed and documented Activities of daily living reviewed and appropriate actions taken . HRA filled out by the patient and reviewed by provider and scanned . Appropriate written screening schedule established . Any health advise needed provided . Advance care planning discussed with the patient , necessary paperwork filled Examination IPPE/AWE: Balance intact Romberg intact Tandem walk intact walk-in turn failed rise from sit to stand intact . ?Hearing ?whisper test pass . Medication list reviewed, patient is stable on medications All other providers patient is seeing discussed and noted . [facility] Medical History History of head injury Polyneuropathy Anemia, pernicious Constipation by delayed colonic transit Anxiety, generalized Lipid disorder Hypertension, essential Surgical History S/P excision of lipoma H/O rectal polypectomy H/O: hysterectomy Family History Father HTN (hypertension) Heart attack Mother CHF (congestive heart failure) Afib HTN (hypertension) Other Substance use disorder Social History Household Members: None Housing: House Are you a primary wild animal caretaker to a significant other at home: No Do you presently have visiting nurse or other home services: No Alcohol intake: never Patient Tobacco Use Status: Former Tobacco user Tobacco use type: Cigarette Years Smoked: since age 14 e-Cigarette/Vaping Use: Never Used Second Hand Smoke Exposure: No service: No Current occupational status: retired Cognitive needs: No Hearing needs: No Vision needs: Yes Questionnaire Medicare Wellness Checkup What gender do you identify with?: female During the past 4 weeks, how much have you been bothered by emotional problems such as feeling anxious, depressed, irritable, sad or downhearted, and blue?: not at all During the past 4 weeks, has your physical & emotional health limited your socia l activities with family, friends, neighbors, or groups?: not at all During the past 4 weeks, how much bodily pain have you generally had?: very mild pain During the past 4 weeks, was someone available to help you if you needed & wanted help?: yes, as much as I wanted During the past 4 weeks, what was the hardest physical activity you could do for at least 2 minutes?: heavy Can you get to places out of walking distance without help? (For eg., can you travel alone on buses, taxis or drive your car?): Yes Can you go shopping for groceries or clothes without someone's help?: Yes Can you prepare your own meals?: Yes Can you do your housework without help?: Yes Because of any health problems, do you need the help of another person with your personal care needs such as eating, bathing, dressing or getting around the house?: No Can you handle your own money without help?: Yes During the past 4 weeks, how would you rate your health in general?: very good During the past 4 weeks how have things been going for you?: pretty well Are you having difficulties driving your car?: no Do you always fasten your seat belt when you are in a car?: yes, usually During past 4 weeks, have you been bothered by the following: never: Falling or dizzy when standing up, Sexual problems?, Trouble eating well?, Teeth or denture problems?, Problems using the telephone? and Tiredness or fatigue? Have you fallen 2 or more times in the past year?: No Are you afraid of falling?: No Are you a smoker?: no During the past 4 weeks, how many drinks of wine, beer, or other alcoholic b everages did you have?: no alcohol at all Do you exercise for about 20 minutes 3 or more times a week?: yes, some of the time Have you been given information to help with the following?: yes: Hazards in your house that might hurt you? and yes: Keeping track of your medications? How often do you have trouble taking medicines the way you have been told to take them?: I always take medicine as prescribed How confident are you that you can control & manage most of your health problems?: very confident What is your race?: White Mini Mental State Exam (MMSE) Orientation What is the (year) (season) (date) (day) (month)?: year, season, date, day and month Where are we (state) (county) (town or city) (hospital) (floor)?: state, county, town or city, hospital/clinic and floor Score Score: 10 Activity of Daily Living Bathing - sponge bath, tub bath or shower: receives no assistance (gets in/out by self, if usual bathing means Dressing - getting clothes from closets & drawers, including inner/outer garments & fasteners.: gets clothes & gets completely dressed without help Toileting - going to the 'toilet room' for urine/bowel elimination & cleaning self/arranging clothes: goes to toilet room, cleans self, arranges clothes without help Transfer: moves in & out of bed and chair without help (may use support object) Continence: controls urination/bowel movements completely by self Feeding: feeds self without help Total Score: 0 Information obtained from: patient Using telephone: independent Traveling: independent Shopping: independent Preparing meals: independent Housework: independent Taking medicine: independent Managing money: independent PHQ-9 Over the last 2 weeks, how often have you been bothered by any of the following problems? 1. Little interest or pleasure in doing things: not at all 2. Feeling down, depressed, or hopeless: not at all 3. Trouble falling or staying asleep, or sleeping too much: not at all 4. Feeling tired or having little energy: not at all 5. Poor appetite or overeating: not at all 6. Feeling bad about yourself - or that you are a failure or have let yourself or your family down: not at all 7. Trouble concentrating on things, such as reading the newspaper or watching television: not at all 8. Moving or speaking so slowly that other people could have noticed. Or the opposite - being so fidgety or restless that you have been moving around a lot more than usual: not at all 9. Thoughts that you would be better off or of hurting yourself in some way: not at all Total score: 0 Depression Screening Interpretation: Negative Depression Screening Done: Yes 71932 - PHQ-9 Billing: Yes Source: Developed by Drs. Ghanshyam Moreno, Jenna Ulloa, Juve Jeong and colleagues, with an educational nestor from [employer]. Review of Systems Const Denies chills and Denies fever(s) ENT Denies epistaxis and Denies nasal discharge Card Denies chest pain Resp Denies chest congestion, Denies cough and Denies hemoptysis GI Denies diarrhea and Denies nausea Skin/Breast Denies rash Neuro Reports no additional complaints Psych Reports no additional complaints Endo Reports no additional complaints Physical Exam Vital Signs: Last Vital Signs Pulse 60 07/05/24 11:13 BP 156/82 H 07/05/24 11:13 Pulse Ox 96 07/05/24 11:13 Oxygen Delivery Method Room Air 07/05/24 11:13 BMI result Body Mass Index 32.6 Const General: cooperative, comfortable and no acute distress Orientation/consciousness: patient oriented x3 HEENT Head: Yes normocephalic Eyes General: appearance normal, both eyes and all related structures Neck Other: Supple Neck: Yes supple Resp Effort & Inspection: normal respiratory effort, no cough and no stridor Cardio Rhythm: regular rhythm Heart sounds: S1 normal heart sound present and S2 normal heart sound present Skin General skin exam: turgor normal Neuro Other: Motor sensory intact General: patient oriented x3, tone normal and moves all extremities Extrem Other: No lower extremity swelling. Right lower extremity: no edema Left lower extremity: no edema Psych Other: Normal effect, speech clear Assessment & Plan Assessment & Plan (1) Medicare annual wellness visit, subsequent: Code(s): Z00.00 - Encounter for general adult medical examination without abnormal find ings (2) Hypertension, essential: Code(s): I10 - Essential (primary) hypertension (3) Lipid disorder: Comment: Make healthy food choices . Eat lots of fruits, vegetables, whole grains, and low-fat dairy products. Limit the amount of meat and fried or fatty foods that you eat. Be active Walk, garden, or do something active for 30 minutes or more on most days of the week. If you smoke, stop smoking. Smoking increases the chance of heart attack or stroke, or develop cancer.If you are over weight, Lose weight, Being overweight increases the risk of many health problems. Avoid alcohol Alcohol can increase blood sugar and blood pressure. Code(s): E78.9 - Disorder of lipoprotein metabolism, unspecified (4) Anxiety, generalized: Code(s): F41.1 - Generalized anxiety disorder (5) Menopause: Code(s): Z78.0 - Asymptomatic menopausal state Plan Patient is 84-year-old female came in today for follow-up visit Hypertension: Blood pressure is slightly elevated however at home patient is monitoring it and it runs in 130s She is taking atenolol chlorthalidone 50-25 mg, and lisinopril 20 mg daily, patient is tolerating medication She is having labs done every six-month and is due in September, order placed Lipid disorder: Diet-controlled patient has stopped taking Crestor Anxiety: Patient is on sertraline 50 mg once a day moods are stable Follow-up 6 months Mammogram and bone density order placed, patient would like to have it done at [facility] Orders: Orders Uric Acid Today E78.9 - Disorder of lipoprotein metabolism, unspecified, F41.1 - Generalized anxiety disorder, I10 - Essential (primary) hypertension Comprehensive [place]. Panel Fast Today E78.9 - Disorder of lipoprotein metabolism, unspecified, F41.1 - Generalized anxiety disorder, I10 - Essential (primary) hypertension Lipid Panel Today E78.9 - Disorder of lipoprotein metabolism, unspecified, F41.1 - Generalized anxiety disorder, I10 - Essential (primary) hypertension XR DEXA axial skeleton Today Z12.31 - Encounter for screening mammogram for malignant neoplasm of breast, Z78.0 - Asymptomatic menopausal state Complete Blood Count Auto Diff Today E78.9 - Disorder of lipoprotein metabolism, unspecified, F41.1 - Generalized anxiety disorder, I10 - Essential (primary) hypertension MM tomosynthesis screening BI Today Z12.31 - Encounter for screening mammogram for malignant neoplasm of breast, Z78.0 - Asymptomatic menopausal state Quality Reporting (2020) Depression/Bipolar (159/160/161/177) PHQ-9: Total score: 0 Coding Level of Care Code Medicare Subsequent (G0439) Est Pt Level 4 (81247) Diagnoses Medicare annual wellness visit, subsequent Z00.00 Hypertension, essential I10 Lipid disorder E78.9 Anxiety, generalized F41.1 Menopause Z78.0 CPT Codes Advance Care Planning - Time spent: 1-15 minutes, not on file ([id number]) Advance Care Planning Advance Care Planning discussion: Completed/Scanned Forms completed: MOLST Time spent: 1-15 minutes, not on file Actual minutes spent: 13
== END 2024-07-05 11:43 | disposition home or self-care (01) ==
PROVIDERS: PCP Internal Medicine; Visit Provider Internal Medicine
DX: Z00.00 Encounter for general adult medical examination without abnormal findings (principal); I10 Essential (primary) hypertension; E78.9 Disorder of lipoprotein metabolism, unspecified; F41.1 Generalized anxiety disorder; Z78.0 Asymptomatic menopausal state
CPT/HCPCS: 1124F; 99214; G0439

== ENCOUNTER 2024-09-03 08:15 | Outpatient (REF) | payer MEDICARE, SELFPAY ==
--- NOTE | ~2024-09-03 | MM_ITS ---
EXAMINATION: MM SCREENING DIGITAL BREAST TOMOSYNTHESIS, BILATERAL CLINICAL INFORMATION: Screening. Asymptomatic. COMPARISON: Mammography: Comparison is made with available priors TECHNIQUE: Digital breast mammography with tomosynthesis is performed in both the craniocaudal and mediolateral oblique views along with computer-aided detection (CAD). FINDINGS: There are scattered areas of fibroglandular density (ACR BI-RADS breast composition Category b). There are no significant masses, abnormal calcifications, or other abnormalities. MM/MM tomosynthesis screening BI IMPRESSION: No mammographic evidence of malignancy. ASSESSMENT: BI-RADS BI-RADS 1 - Negative RECOMMENDATION: Routine annual mammography screening. 1 year F/U This examination should not preclude the clinical evaluation of a suspicious palpable abnormality. This patient's information was entered into a reminder system with a target due date for their next mammogram. Electronically signed by: Jazzy Crockett DO 09/13/2024 10:47 AM EDT
--- NOTE | ~2024-09-03 | MM_ITS ---
EXAMINATION: BONE DENSITOMETRY CLINICAL INDICATION: Menopause. COMPARISON: Baseline BD dated 01/04/2011. TECHNIQUE: Using a [employer] DXA System (software version: 13.1) manufactured by [employer], dual-energy x-ray absorptiometry was performed of the lumbar spine and left hip. The images are of good technical quality. Summary results are attached. FINDINGS: LEFT FEMUR, NECK: Current: BMD 0.719 g/cm2, Z-score -0.5, T-score -2.3, osteopenia. Baseline: BMD 0.807 g/cm2. LEFT FEMUR, TOTAL: Current: BMD 0.824 g/cm2, Z-score 0.1, T-score -1.5, osteopenia, 8.8% decrease from baseline (<5% change is not significant). Baseline: BMD 0.904 g/cm2. AP SPINE L1-L2 (excluding L3 and L4): The data of L1-L4 has been changed to exclude the L3 and L4 vertebral bodies, because at these levels may cause overestimation of lumbar spine density. Current: BMD 0.919 g/cm2, Z-score -1.0, T-score -2.0, osteopenia, 11.7% decrease from baseline (<5% change is not significant). Baseline: BMD 1.041 g/cm2. IDENTIFIED RISK FACTORS: Early menopause, family history (parent hip fracture), history of fracture (adult), hysterectomy, secondary osteoporosis. HISTORY OF FRACTURE: Wrist. MEDICATIONS: Multivitamin, vitamin D. MM/XR DEXA axial skeleton IMPRESSION: 1. DIAGNOSIS: Osteopenia based on the lowest T-score value of -2.3 in the femoral neck applying World Health Organization criteria. 2. 10-YEAR FRACTURE RISK PREDICTION, FRAX: Major osteoporotic fracture (clinical spine, forearm, hip or shoulder) 41.4%. Hip fracture 27.9%. 3. Treatment Recommendations: NOF guidelines recommend consideration for treatment in postmenopausal women and men age 50 and older presenting with the following: -A hip or vertebral (clinical or morphometric) fracture. -T-score less than or equal to -2.5 at the femoral neck or spine after appropriate evaluation to exclude secondary causes. -Low bone mass at the hip or spine and a 10-year fracture probability by FRAX of greater than or equal to 3% for hip fracture or greater than or equal to 20% for major osteoporotic fracture based on the [place] adapted WHO algorithm. 4. Other Recommendations: All treatment decisions require clinical judgment and consideration of individual patient factors, including patient preferences, comorbidities, previous drug use, risk factors not captured in the FRAX model (e.g. frailty, falls, vitamin D deficiency, increased bone turnover, interval significant decline in bone density) and possible under or overestimation of fracture risk by FRAX. Additional medical evaluation for secondary cause of low bone mineral density may be appropriate. FUTURE SCAN RECOMMENDATION: People with diagnosed cases of osteoporosis or at high risk for fracture should have regular bone mineral density tests. For patients eligible for Medicare, routine testing is allowed once every 2 years. The testing frequency can be increased to one year for patients who have rapidly progressing disease, those who are receiving or discontinuing medical therapy to restore bone mass, or have additional risk factors. Electronically signed by: Perla Chaney MD 09/12/2024 03:13 PM EDT
== END 2024-09-03 08:16 | disposition home or self-care (01) ==
LOC: HO.MAMMO 08:15
PROVIDERS: PCP Internal Medicine; Visit Provider Internal Medicine
DX: Z12.31 Encounter for screening mammogram for malignant neoplasm of breast (principal); Z13.820 Encounter for screening for osteoporosis; Z78.0 Asymptomatic menopausal state
CPT/HCPCS: 77063; 77067; 77080

== ENCOUNTER → 2024-09-03 08:30 | Outpatient (BNV) | payer MEDICARE, SELFPAY | PROVIDERS: PCP Internal Medicine; Visit Provider Internal Medicine | DX: Z12.31 Encounter for screening mammogram for malignant neoplasm of breast (principal) | CPT/HCPCS: 77063; 77067 ==

== ENCOUNTER 2025-01-01 11:03 | Outpatient (REF) | payer MEDICARE, SELFPAY ==
[2025-01-01 13:09] LABS: MANUAL DIFF FLAG NO
[2025-01-01 13:39] LABS: Basophils Percent Auto 0.7 % (0-2); Eosinophils Absolute Auto 0.2 X10*3/uL (0.0-0.4); Eosinophils Percent Auto 2.8 % (0-4); Hematocrit 41.9 % (37.0-47.0); Imm Gran Abs Auto 0.01 X10*3/uL (0.00-0.03); Imm Gran Pct Auto 0.2 % (0.0-0.4); Lymphocytes Absolute Auto 1.7 X10*3/uL (1.2-4.9); Lymphocytes Percent Auto 30.2 % (20-40); Mean Corpuscular HGB Conc 33.4 g/dl (31.0-35.0); Mean Corpuscular Hemoglobin 29.5 pg (27.0-33.0); Mean Corpuscular Volume 88.2 fL (80.0-98.0); Mean Platelet Volume 10.6 fL (9.4-12.3); Monocytes Absolute Auto 0.4 X10*3/uL (0.1-1.2); Monocytes Percent Auto 6.5 % (2-11); Neutrophils Absolute Auto 3.4 x10*3/uL (2.0-8.3); Neutrophils Percent Auto 59.6 % (45-73); Platelet Count 229 X10*3/uL (160-400); Red Blood Count 4.75 X10*6/uL (4.20-5.50); Red Cell Distribution Width 12.9 % (11.0-16.0); White Blood Count 5.7 X10*3/uL (4.8-10.8)
[2025-01-01 14:14] LABS: Alanine Aminotransferase 23 U/L (0-31); Albumin Level 3.9 g/dL (3.5-5.0); Alkaline Phosphatase 91 U/L (39-117); Anion Gap 11 (12-20); Aspartate Amino Transferase 28 U/L (5-31); Bilirubin Total 0.4 mg/dL (0.0-1.0); Blood Urea Nitrogen 16 mg/dL (9-16); Calcium 9.3 mg/dL (8.4-10.2); Carbon Dioxide 30 mmol/L (22-29); Chloride 102 mmol/L (96-108); Estimated Glomerular Filt Rate > 60; Ferritin 25 ng/mL (10-250); Glucose Random 98 mg/dL (60-115); Sodium 139 mmol/L (135-145); TSH reflex Free T4 1.55 uIU/mL (0.32-4.0); Total Protein 7.2 g/dL (6.5-8.0)
[2025-01-01 14:18] LABS: Vitamin B12 838 pg/mL (200-900)
[2025-01-02 13:38] LABS: LDL Cholesterol Direct 171 mg/dL (<100)
== END 2025-01-01 11:04 | disposition home or self-care (01) ==
LOC: HO.HMGCLDS 11:03
PROVIDERS: PCP Internal Medicine; Visit Provider Internal Medicine
DX: I10 Essential (primary) hypertension (principal); E78.9 Disorder of lipoprotein metabolism, unspecified; F41.1 Generalized anxiety disorder; D51.8 Other vitamin B12 deficiency anemias; E66.09 Other obesity due to excess calories; Z68.32 Body mass index [BMI] 32.0-32.9, adult; F32.A Depression, unspecified; Z79.899 Other long term (current) drug therapy
CPT/HCPCS: 36415; 80053; 82607; 82728; 83721; 84443; 85025; 96127; 99212

== ENCOUNTER 2025-01-01 11:03 | Outpatient (AMB) | payer MEDICARE, SELFPAY ==
[2025-01-01 11:08] VITALS: BP 140/78; PULSE 61; TEMP 36.6; O2SAT 98; BMI 32.7
--- NOTE | 2025-01-01 11:08 | MHC.PC.OV ---
Vital Signs 01/01/25 11:08 Height 5 ft 7 in Weight 208 lb 9 oz BMI 32.7 BP 140/78 H Blood Pressure Location Rt brachial Position Sitting Pulse 61 Pulse Source Pulse Oximeter Temp 97.9 F Temp Source Oral Pulse Oximetry (%) 98 Oxygen Delivery Method Room Air Intake Visit Reasons: 6 month follow up Allergies No Known Allergies [No Known Allergies*] Allergy (Verified 01/01/25 11:13) Medication List - Last Reconciled 01/01/25 by Angus Mcmullen MD acetaminophen 500 mg PO Q6H PRN ascorbic acid (vitamin C) ER 1,000 caps PO DAILY atenolol-chlorthalidone 50-25 mg 1 tab PO DAILY 90 days cholecalciferol (vitamin D3) (Vitamin D3) 25 mcg PO DAILY coenzyme Q10 (Co Q-10) 50 mg PO DAILY docusate sodium 50 mg PO BID folic acid 1 tab PO DAILY ibuprofen 400 mg PO Q6H PRN lisinopril 20 mg PO DAILY 90 days multivitamin 1 tab PO DAILY sertraline 50 mg PO DAILY 90 days vitamin E 1,000 units PO DAILY Tobacco use date assessed: 01/01/25 Fall risk assessment: No Falls in past year Last assessed Fall Risk: 01/01/25 Dental Screening Dental Screen Date: 01/01/25 Did you have a dental visit in the last 12 months?: Yes Did you have a dental problem in the last 6 months where you did not have access to dental care?: No Was dental information given to patient?: Patient has dentist HPI 6 month follow up HPI Details History The patient is an 84-year-old female presenting for a six-month follow-up visit. - Blood Pressure Management: - Office readings show elevated blood pressure, though home monitoring is within a range of 132 to 138 mmHg systolic. - No new symptoms such as headache or dizziness are associated with the hypertension. - Depression Management: - The patient continues on Sertraline with stable mood and no new depressive symptoms. - Family Concerns: - Reports family health issues including a sister with double pneumonia, a brother with melanomas, and another brother with Guillain-Asif? syndrome. - Constipation resolved and not currently an issue. . Problem List - Essential Hypertension - Depression - obesity - anxiety - osteoarthritis multiple joints Patient Instructions - Continue home monitoring of blood pressure and maintain records of readings. - Undergo required blood tests today prior to departure from the office. - Ensure to follow up with blood test results before future appointments to monitor the effect of medications on electrolytes. - Next appointment is scheduled for July; ensure this continues to be in place. - Attend the laboratory for tests today as there is a standing order in place. Review of Systems - General: No fever no chills - Neurological: No headaches no dizziness - Ear nose throat: No sore throat no hearing difficulty no ear pain - Cardiovascular: No syncope, no chest pain, no palpitations - Gastrointestinal: No nausea vomiting or diarrhea - Endocrine: No polyuria polydipsia no heat intolerance - Genitourinary: No dysuria , no blood in urine Physical Exam General: No acute distress HEENT: No acute findings Neck: Supple Respiratory system: Able to talk in full sentences, no audible wheeze cardiovascular: S1-S2 regular in rate and rhythm Gastrointestinal: No pain, no nausea, vomiting Extremities: No new findings, no swelling in ankles [place] [place] [place]: Alert awake oriented x3 motor sensory intact Skin: Normal turgor [facility] Medical History History of head injury Polyneuropathy Anemia, pernicious Constipation by delayed colonic transit Anxiety, generalized Lipid disorder Hypertension, essential Surgical History S/P excision of lipoma H/O rectal polypectomy H/O: hysterectomy Family History Father HTN (hypertension) Heart attack Mother CHF (congestive heart failure) Afib HTN (hypertension) Other Substance use disorder Social History Household Members: None Housing: House Are you a primary animal care service worker to a significant other at home: No Do you presently have visiting nurse or other home services: No Alcohol intake: never Patient Tobacco Use Status: Former Tobacco user Tobacco use type: Cigarette Years Smoked: since age 14 e-Cigarette/Vaping Use: Never Used Second Hand Smoke Exposure: No service: No Current occupational status: retired Cognitive needs: No Hearing needs: No Vision needs: Yes Questionnaire PHQ-9 Over the last 2 weeks, how often have you been bothered by any of the following problems? 1. Little interest or pleasure in doing things: not at all 2. Feeling down, depressed, or hopeless: not at all 3. Trouble falling or staying asleep, or sleeping too much: not at all 4. Feeling tired or having little energy: not at all 5. Poor appetite or overeating: not at all 6. Feeling bad about yourself - or that you are a failure or have let yourself or your family down: not at all 7. Trouble concentrating on things, such as reading the newspaper or watching television: not at all 8. Moving or speaking so slowly that other people could have noticed. Or the opposite - being so fidgety or restless that you have been moving around a lot more than usual: not at all 9. Thoughts that you would be better off or of hurting yourself in some way: not at all Total score: 0 Depression Screening Interpretation: Negative Depression Screening Done: Yes 13230 - PHQ-9 Billing: Yes Source: Developed by Drs. Ghanshyam Moreno, Jenna Ulloa, Juve Jeong and colleagues, with an educational nestor from [employer]. Thrive Questionnaire Date Thrive assessed: 01/01/25 I am a: Patient What is your living situation today?: I have a steady place to live Within the past 12 months, did the food you bought not last and you didn't have the money to get more?: Never true Within the past 12 months, did you worry whether your food would run out before you got money to buy more?: Never true Do you have trouble paying for medicines?: No Do you have trouble getting transportation to medical appointments?: No Do you have trouble paying your heating and electricity bill?: No Do you have trouble taking care of your child, family member or friend?: No Do you have trouble with day-to-day activities such as bathing, preparing meals, shopping, managing finances, etc.?: No Are you currently unemployed and looking for a job?: No Are you interested in more education?: No Please select the resources that you would like help with: None Currently or been in a relationship where the following occur: No concerns reported THRIVE Score: 0 AUDIT C Alcohol Use Questionnaire (AUDIT-C) 1. How often do you have a drink containing alcohol?: Monthly or less 2. How many drinks containing alcohol do you have on a typical day when you are drinking?: 1 or 2 3. How often do you have six or more drinks on one occasion?: Never Total Score: 1 Score Reviewed/Action Taken: Yes MICHELLE-7 AMB Questionnaire MICHELLE-7 Date MICHELLE - 7 assessed: 01/01/25 Feeling nervous, anxious, or on edge: 0 = Not at all Not being able to stop or control worryin = Not at all Worrying too much about different things: 0 = Not at all Trouble relaxin = Not at all Being so restless that it is hard to sit still: 0 = Not at all Becoming easily annoyed or irritable: 0 = Not at all Feeling afraid as if something awful might happen: 0 = Not at all Total MICHELLE-7 score (0-4 normal; 5-9 mild; 10-14 moderate; 15-21 severe): 0 Source: Developed by Drs. Ghanshyam Moreno, Jenna Ulloa, Juve Jeong and colleagues, with an educational nestor from [employer]. MICHELLE-7 Assessment Billing MICHELLE-7 Assessment Tool: MICHELLE-7 Assessment 83686 Physical exam (Primary Care) Vital Signs: Last Vital Signs Temp 97.9 F 01/01/25 11:08 Pulse 61 01/01/25 11:08 BP 140/78 H 01/01/25 11:08 Pulse Ox 98 01/01/25 11:08 Oxygen Delivery Method Room Air 01/01/25 11:08 BMI result Body Mass Index 32.7 Tobacco/Smoking Status: Tobacco use Status Tobacco use date assessed 01/01/25 01/01/25 11:14 Patient Tobacco Use Status Former Tobacco user 01/01/25 11:14 Tobacco use type Cigarette 01/01/25 11:14 e-Cigarette/Vaping Use Never Used 01/01/25 11:14 PHQ-9: PHQ-9 Score PHQ-9: Total score 0 01/01/25 11:27 Depression Screening Interpretation: Negative Thrive Assessment: Date of Thrive Assessment Date Thrive assessed 01/01/25 01/01/25 11:14 Currently or been in a relationship where the following occur: No concerns reported Coding Level of Care Code Est Pt Level 4 (95878) Complex EM visit Add On G2211 Diagnoses Hypertension, essential I10 Lipid disorder E78.9 Anxiety, generalized F41.1 Vitamin B12 deficiency (dietary) anemia D51.8 Class 1 obesity due to excess calories with serious comorbidity and body mass index (BMI) of 32.0 to 32.9 in adult E66.09; Z68.32 Body mass index: BMI 32.0-32.9 Obesity classification: adult class 1 (BMI 30 - 34.9) Serious obesity comorbidity presence: with serious comorbidity Additional Codes MICHELLE-7 Assessment Billing - MICHELLE-7 Assessment Tool: MICHELLE-7 Assessment 15791 ([id number]) PHQ-9 - 21356 - PHQ-9 Billing: Yes ([id number]) Assessment & Plan Assessment & Plan (1) Hypertension, essential: Code(s): I10 - Essential (primary) hypertension Category: Medical (2) Lipid disorder: Comment: Make healthy food choices . Eat lots of fruits, vegetables, whole grains, and low-fat dairy products. Limit the amount of meat and fried or fatty foods that you eat. Be active Walk, garden, or do something active for 30 minutes or more on most days of the week. If you smoke, stop smoking. Smoking increases the chance of heart attack or stroke, or develop cancer.If you are over weight, Lose weight, Being overweight increases the risk of many health problems. Avoid alcohol Alcohol can increase blood sugar and blood pressure. Code(s): E78.9 - Disorder of lipoprotein metabolism, unspecified Category: Medical (3) Anxiety, generalized: Code(s): F41.1 - Generalized anxiety disorder Category: Medical (4) Vitamin B12 deficiency (dietary) anemia: Code(s): D51.8 - Other vitamin B12 deficiency anemias Category: Medical (5) Obesity due to excess calories: Code(s): E66.09 - Other obesity due to excess calories Category: Medical Qualifiers: Body mass index: BMI 32.0-32.9 Obesity classification: adult class 1 (BMI 30 - 34.9) Serious obesity comorbidity presence: with serious comorbidity Qualified Code(s): E66.09 - Other obesity due to excess calories; Z68.32 - Body mass index [BMI] 32.0-32.9, adult Plan History The patient is an 84-year-old female presenting for a six-month follow-up visit. - Blood Pressure Management: - Office readings show elevated blood pressure, though home monitoring is within a range of 132 to 138 mmHg systolic. - No new symptoms such as headache or dizziness are associated with the hypertension. - Depression Management: - The patient continues on Sertraline with stable mood and no new depressive symptoms. - Family Concerns: - Reports family health issues including a sister with double pneumonia, a brother with melanomas, and another brother with Guillain-Asif? syndrome. - Constipation resolved and not currently an issue. . Problem List - Essential Hypertension - Depression - obesity - anxiety - osteoarthritis multiple joints Patient Instructions - Continue home monitoring of blood pressure and maintain records of readings. - Undergo required blood tests today prior to departure from the office. - Ensure to follow up with blood test results before future appointments to monitor the effect of medications on electrolytes. - Next appointment is scheduled for July; ensure this continues to be in place. - Attend the laboratory for tests today as there is a standing order in place. Orders: Orders Complete Blood Count Auto Diff Today D51.8 - Other vitamin B12 deficiency anemias, E66.09 - Other obesity due to excess calories, E78.9 - Disorder of lipoprotein metabolism, unspecified, F41.1 - Generalized anxiety disorder, I10 - Essential (primary) hypertension, Z68.32 - Body mass index [BMI] 32.0-32.9, adult Comprehensive Met. Panel 6 Months E78.9 - Disorder of lipoprotein metabolism, unspecified, I10 - Essential (primary) hypertension Comprehensive Met. Panel Today D51.8 - Other vitamin B12 deficiency anemias, E66.09 - Other obesity due to excess calories, E78.9 - Disorder of lipoprotein metabolism, unspecified, F41.1 - Generalized anxiety disorder, I10 - Essential (primary) hypertension, Z68.32 - Body mass index [BMI] 32.0-32.9, adult LDL Cholesterol Direct Today D51.8 - Other vitamin B12 deficiency anemias, E66.09 - Other obesity due to excess calories, E78.9 - Disorder of lipoprotein metabolism, unspecified, F41.1 - Generalized anxiety disorder, I10 - Essential (primary) hypertension, Z68.32 - Body mass index [BMI] 32.0-32.9, adult Vitamin B12 Today D51.8 - Other vitamin B12 deficiency anemias, E66.09 - Other obesity due to excess calories, E78.9 - Disorder of lipoprotein metabolism, unspecified, F41.1 - Generalized anxiety disorder, I10 - Essential (primary) hypertension, Z68.32 - Body mass index [BMI] 32.0-32.9, adult TSH reflex Free T4 Today D51.8 - Other vitamin B12 deficiency anemias, E66.09 - Other obesity due to excess calories, E78.9 - Disorder of lipoprotein metabolism, unspecified, F41.1 - Generalized anxiety disorder, I10 - Essential (primary) hypertension, Z68.32 - Body mass index [BMI] 32.0-32.9, adult Ferritin Today D51.8 - Other vitamin B12 deficiency anemias, E66.09 - Other obesity due to excess calories, E78.9 - Disorder of lipoprotein metabolism, unspecified, F41.1 - Generalized anxiety disorder, I10 - Essential (primary) hypertension, Z68.32 - Body mass index [BMI] 32.0-32.9, adult
== END 2025-01-01 11:46 | disposition home or self-care (01) ==
PROVIDERS: PCP Internal Medicine; Visit Provider Internal Medicine
DX: I10 Essential (primary) hypertension (principal); E78.9 Disorder of lipoprotein metabolism, unspecified; F41.1 Generalized anxiety disorder; D51.8 Other vitamin B12 deficiency anemias; E66.09 Other obesity due to excess calories; Z68.32 Body mass index [BMI] 32.0-32.9, adult

== ENCOUNTER 2025-02-17 09:30 | Outpatient (REF) | payer MEDICARE, SELFPAY ==
[2025-02-17 14:29] LABS: Influenza A PCR NEGATIVE (Negative); Influenza B PCR NEGATIVE (Negative); Resp Syncy Virus RNA Qual PCR NEGATIVE (Negative); SARS COV2 PCR INHOUSE NEGATIVE (Negative)
== END 2025-02-17 09:31 | disposition home or self-care (01) ==
LOC: HO.LAB 09:30
PROVIDERS: Physician Assistant; PCP Internal Medicine
DX: J06.9 Acute upper respiratory infection, unspecified (principal); R09.89 Other specified symptoms and signs involving the circulatory and respiratory systems
CPT/HCPCS: 0241U; 87880; 99212

== ENCOUNTER 2025-02-17 09:30 | Outpatient (AMB) | payer MEDICARE, SELFPAY ==
--- NOTE | 2025-02-17 10:46 | MHC.OFFWIV ---
Intake Vital Signs 02/17/25 10:48 Weight 217 lb BP 138/80 Blood Pressure Location Rt brachial Position Sitting Pulse 64 Pulse Source Pulse Oximeter Temp 98.0 F Temp Source Oral Pulse Oximetry (%) 94 Oxygen Delivery Method Room Air Intake Visit Reasons: EP Headache, sore throat Intake Note: Patient here for headaches, sore throat and cough that started monday. Patient Tobacco Use Status: Former Tobacco user Allergies No Known Allergies [No Known Allergies*] Allergy (Verified 02/17/25 10:48) Do you need a note to return to daycare/school/sports/work: No HPI HPI Comments History of Present Illness Details History - The patient is an 84-year-old female presenting with upper respiratory symptoms. - Symptoms began two days prior, including chest tightness, light muniz mucus, and dry cough. - No shortness of breath, wheezing, sinus, or ear pain reported. - Low-grade temperature noted, with typical baseline at 96?F and current at 98?F. - Patient took Tylenol with some relief, with a potential sick contact at home. - Not using Flonase or similar agents; concerned about addiction to Afrin. Physical Exam General: Cooperative, healthy appearing, comfortable and no acute distress Orientation/consciousness: Patient oriented x3 Limitations: No limitations Head: Normal to inspection Ears: Hearing grossly normal bilaterally, external ears normal and TM's normal bilaterally Nose: Normal external nose present, Normal nares present and No nasal discharge present Face and sinus: Normal facial exam and Yes sinuses nontender Mouth: Normal oral and palatal mucosa present and moist mucous membranes Throat: Yes tonsils normal, Yes uvula midline. Posterior oropharynx erythema Eyes: Appearance normal, both eyes and all related structures Neck: Normal visual inspection Respiratory: Clear to auscultation bilaterally. Normal respiratory effort, able to speak in complete sentences, Actively coughing, no respiratory distress, not tachypneic, no tripod positioning and no use of accessory muscles Cardiovascular: Regular rate and rhythm. Normal S1 and S2 Skin: No rashes or lesions noted Neuro: Patient oriented x3 Extremities: Normal to inspection and Yes no clubbing, cyanosis or edema [facility] Medical History History of head injury Polyneuropathy Anemia, pernicious Constipation by delayed colonic transit Anxiety, generalized Lipid disorder Hypertension, essential Surgical History S/P excision of lipoma H/O rectal polypectomy H/O: hysterectomy Family History Father HTN (hypertension) Heart attack Mother CHF (congestive heart failure) Afib HTN (hypertension) Other Substance use disorder Social History Household Members: None Housing: House Are you a primary family day care provider to a significant other at home: No Do you presently have visiting nurse or other home services: No Alcohol intake: never Patient Tobacco Use Status: Former Tobacco user Tobacco use type: Cigarette Years Smoked: since age 14 e-Cigarette/Vaping Use: Never Used Second Hand Smoke Exposure: No service: No Current occupational status: retired Cognitive needs: No Hearing needs: No Vision needs: Yes Review of Systems Const All systems reviewed & are unremarkable except as noted in HPI and below Physical Exam Vital Signs: Last Vital Signs Temp 98.0 F 02/17/25 10:48 Pulse 64 02/17/25 10:48 BP 138/80 02/17/25 10:48 Pulse Ox 94 02/17/25 10:48 Oxygen Delivery Method Room Air 02/17/25 10:48 Results AMB Rapid Strep AMB Rapid Strep Negative Last Edit by NAYLA Rahman on 02/17/25 11:05 Results Reviewed Results Reviewed: Laboratory Last Values Strep Scn Rapid Clinic Negative 02/17/25 11:04 Assessment & Plan Assessment & Plan (1) URI, acute: Code(s): J06.9 - Acute upper respiratory infection, unspecified Plan: VSS, pt well appearing and PE unremarkable. I will conduct tests for influenza, COVID-19, and RSV, given the patient's symptoms and potential exposure at home. Results should be available later in the day, guiding treatment regarding antiviral medications. We discussed using nasal steroids and saline rinses as potentially helpful and cautioned against addictive decongestants like Afrin. Patient was informed and verbally consented to the use of an ambient scribe for clinic note documentation during this visit Orders: Orders AMB Rapid Strep Screen Today Z13.9 - Encounter for screening, unspecified SARS-CoV2/FLU/RSV Today R09.89 - Other specified symptoms and signs involving the circulatory and respiratory systems Coding Level of Care Code Est Pt Level 3 (76437) Diagnoses URI, acute J06.9
[2025-02-17 10:48] VITALS: BP 138/80; PULSE 64; TEMP 36.7; O2SAT 94
== END 2025-02-17 11:24 | disposition home or self-care (01) ==
PROVIDERS: PCP Internal Medicine; Visit Provider Physician Assistant
DX: J06.9 Acute upper respiratory infection, unspecified (principal); Z13.9 Encounter for screening, unspecified

== ENCOUNTER 2025-07-15 10:15 | Outpatient (AMB) | payer MEDICARE, SELFPAY ==
[2025-07-15 10:18] VITALS: BP 138/80; PULSE 66; O2SAT 97; BMI 32.1
--- NOTE | 2025-07-15 10:18 | A.OFFVIS_ITS ---
Intake Vital Signs 07/15/25 10:18 Height 5 ft 7 in Weight 205 lb BMI 32.1 BP 138/80 Blood Pressure Location Lt brachial Position Sitting Pulse 66 Pulse Source Pulse Oximeter Pulse Oximetry (%) 97 Intake Visit Reasons: V [id number] Allergies No Known Allergies (No Known Allergies*) Allergy (Verified 07/15/25 10:18) Medication List - Last Reconciled 07/15/25 by Angus Mcmullen MD acetaminophen 500 mg PO Q6H PRN ascorbic acid (vitamin C) ER 1,000 caps PO DAILY atenolol-chlorthalidone 50-25 mg 1 tab PO DAILY 90 days cholecalciferol (vitamin D3) (Vitamin D3) 25 mcg PO DAILY coenzyme Q10 (Co Q-10) 50 mg PO DAILY docusate sodium 50 mg PO BID folic acid 1 tab PO DAILY ibuprofen 400 mg PO Q6H PRN lisinopril 20 mg PO DAILY 90 days multivitamin 1 tab PO DAILY sertraline 50 mg PO DAILY 90 days vitamin E 1,000 units PO DAILY Do you need a note to return to daycare/school/sports/work: No HPI [facility] G0439 HPI Details History of Present Illness The patient is an 85-year-old female presenting for routine follow-up and laboratory evaluation for chronic conditions. And Medicare wellness visit Hyperlipidemia: - Patient was informed of high LDL cassidy sterol level, which was measured at 171, above the recommended less than 100. - The patient expressed no desire to sta rt medication to address the elevated cholesterol. Pernicious Anemia: - History of pernicious anemia managed i nitially with B12 injections. - Transitioned from injections to sublin gual B12 due to high levels. - Currently on sublingual B12; dosage hansen spected to be 1,000 mcg twice a month. - B12 level last checked at 838. Essential Hypertension: - Blood pressure recorded at 138/80. - Managed with atenolol and lisinopril. Medical History: - Hyperlipidemia - Pernicious anemia - Essential hypertension Medications: - Atenolol (for hypertension) - Chlorthalidone 50-25 mg (for hypertens ion) - Lisinopril 20 mg (for hypertension) - Ibuprofen as needed (for joint pain) - Sertraline 50 mg (unspecified) - Vitamin D (supplementation) - Vitamin E (supplementation) - Multivitamin (supplementation) - Sublingual B12 (management of pernicio us anemia, suspected 1000 mcg) Diagnostic Results: - Labs: - Cholesterol LDL: 171 - B12:838 - CBC: Normal - Electrolytes: Normal - Kidney functions: Normal - Liver enzymes: Normal - Thyroid: Normal Problem List - Hyperlipidemia - Pernicious Anemia - Essential Hypertension Patient Instructions - Bring healthcare proxy document to nex t visit. - Consider fasting for next set of lab t ests if applicable. - Ensure routine follow-up in six months . - Schedule two appointments: one in and one for annual wellness. Review of Systems - General: No fever no chills - Neurological: No headaches no dizziness - Ear nose throat: No sore throat no hearing difficulty no ear pain - Cardiovascular: No syncope, no chest pain, no palpitations - Gastrointestinal: No nausea vomiting or diarrhea - Endocrine: No polyuria polydipsia no heat intolerance - Genitourinary: No dysuria , no blood in urine Physical Exam General: No acute distress HEENT: No acute findings Neck: Supple Respiratory system: Able to talk in full sentences, no audible wheeze Cardiovascular: S1-S2 regular in rate and rhythm, no chest pains, no shortness of breath Gastrointestinal: No pain, no constipation, no difficulty peeing Extremities: No new findings, no swelling of ankles [employer]: Alert awake oriented x3 motor sensory intact Skin: Normal turgor PFSH Medical History History of head injury Polyneuropathy Anemia, pernicious Constipation by delayed colonic transit Anxiety, generalized Lipid disorder Hypertension, essential Surgical History S/P excision of lipoma H/O rectal polypectomy H/O: hysterectomy Family History Father HTN (hypertension) Heart attack Mother CHF (congestive heart failure) Afib HTN (hypertension) Other Substance use disorder Social History Household Members: None Housing: House Are you a primary animal care provider to a significant other at home: No Do you presently have visiting nurse or other home services: No Alcohol intake: never Patient Tobacco Use Status: Former Tobacco user Tobacco use type: Cigarette Years Smoked: since age 14 e-Cigarette/Vaping Use: Never Used Second Hand Smoke Exposure: No service: No Current occupational status: retired Cognitive needs: No Hearing needs: No Vision needs: Yes Questionnaire Medicare Wellness Checkup What is your age?: 80 or older What gender do you identify with?: female During the past 4 weeks, how much have you been bothered by emotional problems such as feeling anxious, depressed, irritable, sad or downhearted, and blue?: not at all During the past 4 weeks, has your physical & emotional health limited your soci al activities with family, friends, neighbors, or groups?: not at all During the past 4 weeks, how much bodily pain have you generally had?: no pain During the past 4 weeks, was someone available to help you if you needed & wanted help?: yes, as much as I wanted During the past 4 weeks, what was the hardest physical activity you could do for at least 2 minutes?: heavy Can you get to places out of walking distance without help? (For eg., can you travel alone on buses, taxis or drive your car?): Yes Can you go shopping for groceries or clothes without someone's help?: Yes Can you prepare your own meals?: Yes Can you do your housework without help?: Yes Because of any health problems, do you need the help of another person with your personal care needs such as eating, bathing, dressing or getting around the house?: No Can you handle your own money without help?: Yes During the past 4 weeks, how would you rate your health in general?: very good During the past 4 weeks how have things been going for you?: pretty well Are you having difficulties driving your car?: no Do you always fasten your seat belt when you are in a car?: yes, usually During past 4 weeks, have you been bothered by the following: never: Falling or dizzy when standing up, Trouble eating well?, Teeth or denture problems?, Problems using the telephone? and Tiredness or fatigue? Have you fallen 2 or more times in the past year?: No Are you afraid of falling?: No Are you a smoker?: no During the past 4 weeks, how many drinks of wine, beer, or other alcoholic beverages did you have?: no alcohol at all Do you exercise for about 20 minutes 3 or more times a week?: yes, some of the time Have you been given information to help with the following?: yes: Hazards in your house that might hurt you? and yes: Keeping track of your medications? How often do you have trouble taking medicines the way you have been told to take them?: I always take medicine as prescribed How confident are you that you can control & manage most of your health problems?: very confident What is your race?: White Mini Mental State Exam (MMSE) Orientation What is the (year) (season) (date) (day) (month)?: year, season, date, day and month Where are we (state) (county) (town or city) (hospital) (floor)?: state, county, town or city, hospital/clinic and floor Score Score: 10 Activity of Daily Living Bathing - sponge bath, tub bath or shower: receives no assistance (gets in/out by self, if usual bathing means Dressing - getting clothes from closets & drawers, including inner/outer garments & fasteners.: gets clothes & gets completely dressed without help Toileting - going to the 'toilet room' for urine/bowel elimination & cleaning self/arranging clothes: goes to toilet room, cleans self, arranges clothes without help Transfer: moves in & out of bed and chair without help (may use support object) Continence: controls urination/bowel movements completely by self Feeding: feeds self without help Total Score: 0 Information obtained from: patient Using telephone: independent Traveling: independent Shopping: independent Preparing meals: independent Housework: independent Taking medicine: independent Managing money: independent PHQ-9 Over the last 2 weeks, how often have you been bothered by any of the following problems? 1. Little interest or pleasure in doing things: not at all 2. Feeling down, depressed, or hopeless: not at all 3. Trouble falling or staying asleep, or sleeping too much: not at all 4. Feeling tired or having little energy: not at all 5. Poor appetite or overeating: not at all 6. Feeling bad about yourself - or that you are a failure or have let yourself or your family down: not at all 7. Trouble concentrating on things, such as reading the newspaper or watching television: not at all 8. Moving or speaking so slowly that other people could have noticed. Or the opposite - being so fidgety or restless that you have been moving around a lot more than usual: not at all 9. Thoughts that you would be better off or of hurting yourself in some w ay: not at all Total score: 0 Depression Screening Interpretation: Negative Depression Screening Done: Yes 61110 - PHQ-9 Billing: Yes Source: Developed by Drs. Ghanshyam Moreno, Jenna Ulloa, Juve Jeong and colleagues, with an educational nestor from [employer]. Physical Exam Vital Signs: Last Vital Signs Pulse 66 07/15/25 10:18 BP 138/80 07/15/25 10:18 Pulse Ox 97 07/15/25 10:18 BMI result Body Mass Index 32.1 Assessment & Plan Assessment & Plan (1) Medicare annual wellness visit, subsequent: Code(s): Z00.00 - Encounter for general adult medical examination without abnormal findings (2) Hypertension, essential: Code(s): I10 - Essential (primary) hypertension (3) Lipid disorder: Comment: Make healthy food choices . Eat lots of fruits, vegetables, whole grains, and low-fat dairy products. Limit the amount of meat and fried or fatty foods that you eat. Be active Walk, garden, or do something active for 30 minutes or more on most days of the week. If you smoke, stop smoking. Smoking increases the chance of heart attack or stroke, or develop cancer.If you are over weight, Lose weight, Being overweight increases the risk of many health problems. Avoid alcohol Alcohol can increase blood sugar and blood pressure. Code(s): E78.9 - Disorder of lipoprotein metabolism, unspecified (4) Anxiety, generalized: Code(s): F41.1 - Generalized anxiety disorder (5) Vitamin B12 deficiency (dietary) anemia: Code(s): D51.8 - Other vitamin B12 deficiency anemias (6) Pernicious anemia: Code(s): D51.0 - Vitamin B12 deficiency anemia due to intrinsic factor deficiency (7) Obesity due to excess calories: Code(s): E66.09 - Other obesity due to excess calories Qualifiers: Body mass index: BMI 32.0-32.9 Obesity classification: adult class 1 (BMI 30 - 34.9) Serious obesity comorbidity presence: with serious comorbidity Qualified Code(s): E66.09 - Other obesity due to excess calories; Z68.32 - Body mass index [BMI] 32.0-32.9, adult Plan History of Present Illness The patient is an 85-year-old female presenting for routine follow-up and laboratory evaluation for chronic conditions. And Medicare wellness visit Hyperlipidemia: - Patient was informed of high LDL cholesterol level, which was measured at 171, above the recommended less than 100. - The patient expressed no desire to start medication to address the elevated cholesterol. Pernicious Anemia: - History of pernicious anemia managed initially with B12 injections. - Transitioned from injections to sublingual B12 due to high levels. - Currently on sublingual B12; dosage suspected to be 1,000 mcg twice a month. - B12 level last checked at 838. Essential Hypertension: - Blood pressure recorded at 138/80. - Managed with atenolol and lisinopril. Medical History: - Hyperlipidemia - Pernicious anemia - Essential hypertension Medications: - Atenolol (for hypertension) - Chlorthalidone 50-25 mg (for hypertension) - Lisinopril 20 mg (for hypertension) - Ibuprofen as needed (for joint pain) - Sertraline 50 mg (unspecified) - Vitamin D (supplementation) - Vitamin E (supplementation) - Multivitamin (supplementation) - Sublingual B12 (management of pernicious anemia, suspected 1000 mcg) Diagnostic Results: - Labs: - Cholesterol LDL: 171 - B12:838 - CBC: Normal - Electrolytes: Normal - Kidney functions: Normal - Liver enzymes: Normal - Thyroid: Normal Problem List - Hyperlipidemia - Pernicious Anemia - Essential Hypertension Patient Instructions - Bring healthcare proxy document to next visit. - Consider fasting for next set of lab tests if applicable. - Ensure routine follow-up in six months. - Schedule two appointments: one in December and one for annual wellness. Orders: Orders Complete Blood Count Auto Diff Today D51.0 - Vitamin B12 deficiency anemia due to intrinsic factor deficiency, D51.8 - Other vitamin B12 deficiency anemias, E66.09 - Other obesity due to excess calories, E78.9 - Disorder of lipoprotein metabolism, unspecified, F41.1 - Generalized anxiety disorder, I10 - Essential (primary) hypertension, Z68.32 - Body mass index [BMI] 32.0-32.9, adult Vitamin B12 Today D51.8 - Other vitamin B12 deficiency anemias Intrinsic Factor Antibodies Today D51.8 - Other vitamin B12 deficiency anemias Comprehensive Met. Panel Today D51.0 - Vitamin B12 deficiency anemia due to intrinsic factor deficiency, D51.8 - Other vitamin B12 deficiency anemias, E66.09 - Other obesity due to excess calories, E78.9 - Disorder of lipoprotein metabolism, unspecified, F41.1 - Generalized anxiety disorder, I10 - Essential (primary) hypertension, Z68.32 - Body mass index [BMI] 32.0-32.9, adult Medications: New mecobalamin (vitamin B12) place tablet under tongue and allow to dissolve for at least30 secs before swallowing 1,000 mcg sublingual BEDTIME Quality Reporting (2019) Depression/Bipolar (159/160/161/177) PHQ-9: Total score: 0 Coding Level of Care Code Medicare Subsequent (G0439) Est Pt Level 3 (11008) Diagnoses Medicare annual wellness visit, subsequent Z00.00 Hypertension, essential I10 Lipid disorder E78.9 Anxiety, generalized F41.1 Vitamin B12 deficiency (dietary) anemia D51.8 Pernicious anemia D51.0 Class 1 obesity due to excess calories with serious comorbidity and body mass index (BMI) of 32.0 to 32.9 in adult E66.09; Z68.32 Body mass index: BMI 32.0-32.9 Obesity classification: adult class 1 (BMI 30 - 34.9) Serious obesity comorbidity presence: with serious comorbidity CPT Codes Advance Care Planning - Advance Care Planning discussion: On file, no changes ([id number]) Advance Care Planning - Time spent: 1-15 minutes, on File ([id number]) Additional Codes PHQ-9 - 54348 - PHQ-9 Billing: Yes ([id number]) Advance Care Planning Advance Care Planning discussion: On file, no changes Forms completed: MOLST Time spent: 1-15 minutes, on File
== END 2025-07-15 10:44 | disposition home or self-care (01) ==
LOC: HO.HMCC 10:16
PROVIDERS: PCP Internal Medicine; Visit Provider Internal Medicine
DX: Z00.00 Encounter for general adult medical examination without abnormal findings (principal); I10 Essential (primary) hypertension; E66.09 Other obesity due to excess calories; Z68.32 Body mass index [BMI] 32.0-32.9, adult; E78.9 Disorder of lipoprotein metabolism, unspecified; F41.1 Generalized anxiety disorder; D51.8 Other vitamin B12 deficiency anemias; D51.0 Vitamin B12 deficiency anemia due to intrinsic factor deficiency

== ENCOUNTER 2025-07-15 10:15 | Outpatient (REF) | payer MEDICARE, SELFPAY ==
[2025-07-15 12:55] LABS: MANUAL DIFF FLAG NO
[2025-07-15 13:15] LABS: Hematocrit 42.0 % (37.0-47.0); Hemoglobin 13.8 g/dl (12.0-16.0); Imm Gran Abs Auto 0.02 X10*3/uL (0.00-0.03); Imm Gran Pct Auto 0.3 % (0.0-0.4); Lymphocytes Absolute Auto 1.8 X10*3/uL (1.2-4.9); Mean Corpuscular HGB Conc 32.9 g/dl (31.0-35.0); Mean Corpuscular Hemoglobin 28.8 pg (27.0-33.0); Mean Corpuscular Volume 87.5 fL (80.0-98.0); NRBC Abs Auto 0.000 X10*3/uL (0.0-0.012); NRBC Pct Auto 0.0 /100WBC (0.0-0.2); Platelet Count 248 X10*3/uL (160-400); Red Blood Count 4.80 X10*6/uL (4.20-5.50); White Blood Count 5.8 X10*3/uL (4.8-10.8)
[2025-07-15 13:29] LABS: Alanine Aminotransferase 22 U/L (0-31); Albumin Level 4.3 g/dL (3.5-5.0); Alkaline Phosphatase 90 U/L (39-117); Anion Gap 12 (12-20); Aspartate Amino Transferase 32 U/L (5-31); Blood Urea Nitrogen 18 mg/dL (9-16); Calcium 9.4 mg/dL (8.4-10.2); Carbon Dioxide 31 mmol/L (22-29); Chloride 102 mmol/L (96-108); Estimated Glomerular Filt Rate > 60; Potassium 4.1 mmol/L (3.3-5.1); Sodium 141 mmol/L (135-145); Total Protein 7.1 g/dL (6.5-8.0)
[2025-07-15 14:15] LABS: Vitamin B12 711 pg/mL (200-900)
[2025-07-18 19:57] LABS: Intrinsic Factor Antibodies Positive (Negative)
== END 2025-07-15 10:16 | disposition home or self-care (01) ==
LOC: HO.HMGCLDS 10:15
PROVIDERS: PCP Internal Medicine; Visit Provider Internal Medicine
DX: Z00.00 Encounter for general adult medical examination without abnormal findings (principal); I10 Essential (primary) hypertension; E78.5 Hyperlipidemia, unspecified; F41.1 Generalized anxiety disorder; D51.0 Vitamin B12 deficiency anemia due to intrinsic factor deficiency; E66.811 Obesity, class 1; Z68.32 Body mass index [BMI] 32.0-32.9, adult; Z87.891 Personal history of nicotine dependence; Z79.899 Other long term (current) drug therapy
CPT/HCPCS: 36415; 80053; 82607; 85025; 86340; 96127; 99212